=== PATIENT | male | born 1975 | race American Indian/Alaskan Native ===

== ENCOUNTER 2018-04-16 08:51 | Inpatient (IN) | payer BC, OTHER ==
[2018-04-16 09:07] VITALS: BMI 47.5
[2018-04-16] MEDS ORDERED: Sodium Chloride 0.9% 1,000 ML IV STA (09:40)
--- NOTE | 2018-04-16 09:50 | ED PDOC ---
Arrival/HPI <Leonardo Galarza - Last Filed: 04/16/18 14:58> - General Historian: Patient - History of Present Illness Narrative History of Present Illness (Text): Patient is a 43 yr old male with PMH DM, HTN who presents with 2 days of pain at the inferior border of his scrotum near/extending into his perineum. he states the pain began while sitting as he is a haul truck driver and has been getting gradually worse. Patient states the area began to swell extending into his scrotum and it "felt like there was a ball there". Patient went to an urgent care yesterday and states that they indicated there was nothing to do. Patient states that upon returning home last night the area "burst" and began to drain foul smelling pus. Patient does endorse mild fevers and chills but otherwise deneis CESAR, CP, SOB, abdominal pain, n/v, dysuria, stool changes, diarrhea, const ipation and extremity pain/weakness. 04/16/18 09:45 Time/Duration: Prior to Arrival, 24 hours Symptom Onset: Gradual Symptom Course: Worsening Quality: Throbbing Severity Level: 6 Activities at Onset: Rest Context: Sitting <Honey Keen - Last Filed: 04/20/18 19:28> - General Chief Complaint: Male Genitourinary Time Seen by Provider: 04/16/18 09:30 Past Medical History - Provider Review Nursing Documentation Reviewed: Yes - Infectious Disease Hx of Infectious Diseases: None - Cardiac Hx Hypertension: Yes - Endocrine/Metabolic Hx Diabetes Mellitus Type 2: Yes - Psychiatric Hx Depression: No Hx Emotional Abuse: No Hx Physical Abuse: No Hx Substance Use: No - Surgical History Hx Orthopedic Surgery: Yes Other/Comment: R finger sx - Suicidal Assessment Feels Threatened In Home Enviroment: No <Honey Keen - Last Filed: 04/20/18 19:28> Family/Social History Family/Social History: Unknown Family HX Smoking Status: Light Smoker < 10 Cigarettes Daily Hx Alcohol Use: Yes Frequency of alcohol use: Socially Hx Substance Use: No Hx Substance Use Treatment: No <Honey Keen - Last Filed: 04/20/18 19:28> Allergies/Home Meds <Leonardo Galarza - Last Filed: 04/16/18 14:58> <Honey Keen - Last Filed: 04/20/18 19:28> Allergies/Adverse Reactions: Allergies No Known Allergies Allergy (Verified 04/12/12 11:40) Home Medications: Home Meds Medication Instructions Recorded Confirmed Atenolol [Tenormin] 50 mg PO DAILY 04/16/18 04/16/18 GlipiZIDE [Glipizide] 10 mg PO DAILY 04/16/18 04/16/18 Losartan/Hydrochlorothiazide 1 each PO DAILY 04/16/18 04/16/18 [Losartan-Hctz 100-25 mg Tab] MetFORMIN [glucOPHAGE] 1,000 mg PO BID 04/16/18 04/16/18 amLODIPine [Norvasc] 10 mg PO DAILY 04/16/18 04/16/18 Review of Systems - Physician Review All systems were reviewed & negative as marked: Yes - Review of Systems Constitutional: Fevers. absent: Fatigue Respiratory: absent: SOB, Cough Cardiovascular: absent: Chest Pain Gastrointestinal: absent: Abdominal Pain, Constipation, Diarrhea, Nausea, Vomiting Genitourinary Male: Other (scrotal pain). absent: Dysuria, Hematuria Neurological: absent: Headache Endocrine: absent: Diaphoresis <KeenHoney ray - Last Filed: 04/20/18 19:28> Physical Exam Vital Signs Temp Pulse Resp BP Pulse Ox 04/16/18 09:15 99.1 F 93 H 18 130/83 96 <Leonardo Galarza - Last Filed: 04/16/18 14:58> Vital Signs Reviewed: Yes Vital Signs Temp Pulse Resp BP Pulse Ox 04/16/18 09:15 99.1 F 93 H 18 130/83 96 Temperature: Afebrile Blood Pressure: Normal Pulse: Tachycardic Respiratory Rate: Normal Appearance: Positive for: Well-Appearing, Non-Toxic, Comfortable Pain Distress: None Mental Status: Positive for: Alert and Oriented X 3 - Systems Exam Head: Present: Atraumatic, Normocephalic Pupils: Present: PERRL Extroacular Muscles: Present: EOMI Mouth: Present: Moist Mucous Membranes Respiratory/Chest: No: Respiratory Distress, Accessory Muscle Use Cardiovascular: Present: Normal S1, S2, Tachycardic. No: Murmurs Abdomen: No: Tenderness, Distention, Peritoneal Signs, Rebound, Guarding Genitourinary Male: Present: Testicle Tenderness, Erythema, Testicle Swelling, Other (Large area of induration and tenderness involving the p[erineal area and testicles, area is draining foul smelling fluid and air is expressed with fluid, crepitus is present). No: Circumcised Penis, Penile Discharge, Penile Swelling Upper Extremity: Present: Normal Inspection, NORMAL PULSES. No: Cyanosis, Edema Lower Extremity: Present: Normal Inspection, NORMAL PULSES. No: Edema, CALF TENDERNESS Neurological: Present: GCS=15, CN II-XII Intact, Speech Normal Skin: Present: Warm, Erythematous, Induration, Abscess, Other (Large area of induration and tenderness involving the p[erineal area and testicles, area is draining foul smelling fluid and air is expressed with fluid, crepitus is pres ent) Psychiatric: Present: Alert, Oriented x 3, Normal Insight, Normal Concentration <Honey Keen - Last Filed: 04/20/18 19:28> Medical Decision Making ED Course and Treatment: 04/16/18 11:12 43 year old male presenting to the emergency department complaining of scrotal pain. In agreement with resident note, which includes further HPI details. Patient was seen and evaluated with resident, came up with plan and treatment together. 04/16/18 13:[address] huff to the hospitalist service, patient to be admitted for surgical management of scrotal abscess with concerns for fourniers gangrene. - Lab Interpretations Lab Results: Total Bilirubin 0.8 mg/dL (0.2-1.3) 04/16/18 10:00 AST 23 U/L (17-59) 04/16/18 10:00 ALT 37 U/L (7-56) 04/16/18 10:00 Alkaline Phosphatase 144 U/L (38-126) H 04/16/18 10:00 Total Protein 6.9 g/dL (5.8-8.3) 04/16/18 10:00 Albumin 3.5 g/dL (3.0-4.8) 04/16/18 10:00 Globulin 3.4 gm/dL 04/16/18 10:00 Albumin/Globulin Ratio 1.0 (1.1-1.8) L 04/16/18 10:00 - RAD Interpretation Radiology Orders: 04/16/18 09:38 ABD & PELVIS IV CONTRAST ONLY [CT] Stat - Medication Orders Current Medication Orders: Vancomycin HCl (Vancomycin 1gm) 1 gm in 250 mls @ 167 mls/hr IVPB STAT STA; Protocol Stop: 04/16/18 11:41 Discontinued Medications Acetaminophen (Tylenol 325mg Tab) 650 mg PO STAT STA Stop: 04/16/18 09:41 Last Admin: 04/16/18 10:04 Dose: Not Given Non-Admin Reason: Patient Refused Sodium Chloride (Sodium Chloride 0.9%) 1,000 mls @ 999 mls/hr IV .Q1H1M STA Stop: 04/16/18 10:40 Last Admin: 04/16/18 10:00 Dose: 999 mls/hr eMAR Start Stop Document 04/16/18 10:00 OCS (Rec: 04/16/18 10:01 OCS [facility]) Intravenous Solution Start Date 04/16/18 Start Time 10:00 End Date 04/16/18 End time 11:01 Total Infusion Time 61 Piperacillin Sod/Tazobactam Sod (Zosyn 3.375 In Ns 100ml) 100 mls @ 200 mls/hr IVPB STAT STA; Protocol Stop: 04/16/18 10:41 Insulin Human Regular (Humulin R) 10 units IVP STAT STA Stop: 04/16/18 10:58 <Leonardo Galarza - Last Filed: 04/16/18 14:58> ED Course and Treatment: Impression: 43 yr old male with DM presenting for scrotal pain/drainage Plan : CBC CMP Urology consult, concern for possible Chilo's gangrene Dr. Rodney called and left message [id number] Abd/ Pelvis CT w/ IV contrast IVF 04/16/18 09:[address] Rodney Urologist, agrees with plan will make pt NPO in case of OR, consult General Surgery, Dr. Strickland, per Dr. Rodneys request ordered NPO, vbg lactate, blood cultures and wound cultures 04/16/18 10:[address] Rowe radiology regarding read for CT scan, awaiting call back 04/16/18 12:54 spoke with General surgery team about CT results, agreed to evaluate patient 04/16/18 12:[address] Rowe Radiologist, agrees with presence of gas trapping in scrotum suspicious for necrotizing gas forming bacterial infection 04/16/18 13:08 04/16/18 13:[address] huff, hospitalist, patient to recieve surgical management for scrotal abscess with concern for chilo's gangrene - Lab Interpretations Lab Results: 04/16/18 10:00 04/16/18 10:00 Lab Results 04/16/18 11:30: pO2 113 H, VBG pH 7.43, VBG pCO2 37.0 L, VBG HCO3 24.6, VBG Total CO2 25.7, VBG O2 Sat (Calc) 97.3 H, VBG Base Excess 0.5, VBG Potassium 3.7, Glucose 380 H, Lactate 1.3, FiO2 21.0, Sodium 132.0, Chloride 100.0, Venous Blood Potassium 3.7 04/16/18 10:05: PT 14.6 H, INR 1.26, APTT 32.2 04/16/18 10:00: Sodium 136, Potassium 4.0, Chloride 101, Carbon Dioxide 27, Anion Gap 12, BUN 21, Creatinine 1.3, Est GFR ( Amer) > 60, Est GFR (Non- Af Amer) 60, Random Glucose 379 H*, Calcium 8.9, Total Bilirubin 0.8, AST 23, ALT 37, Alkaline Phosphatase 144 H, Total Protein 6.9, Albumin 3.5, Globulin 3.4, Albumin/Globulin Ratio 1.0 L 04/16/18 10:00: WBC 10.4, RBC 4.75, Hgb 13.2 L, Hct 39.9 L, MCV 84.0, MCH 27.8, MCHC 33.1, RDW 13.3, Plt Count 251, MPV 10.1 Interpretation: Abnormal lab values - RAD Interpretation Radiology Orders: 04/16/18 09:38 ABD & PELVIS IV CONTRAST ONLY [CT] Stat - Medication Orders Current Medication Orders: Sodium Chloride (Sodium Chloride 0.9%) 1,000 mls @ 999 mls/hr IV .Q1H1M STA Stop: 04/16/18 10:40 Discontinued Medications Acetaminophen (Tylenol 325mg Tab) 650 mg PO STAT STA Stop: 04/16/18 09:41 <Honey Keen - Last Filed: 04/20/18 19:28> - PA / SKID STRAPPER / Resident Statement MD/DO has reviewed & agrees with the documentation as recorded. MD/DO has examined the patient and agrees with the treatment plan. - Scribe Statement The provider has reviewed the documentation as recorded by the Milagroibalcon Mahoney All medical record entries made by the Scribe were at my direction and personally dictated by me. I have reviewed the chart and agree that the record accurately reflects my personal performance of the history, physical exam, medical decision making, and the department course for this patient. I have also personally directed, reviewed, and agree with the discharge instructions and disposition. <Leonardo Galarza - Last Filed: 04/16/18 14:58> Disposition/Present on Arrival <Leonardo Galarza - Last Filed: 04/16/18 14:58> - Present on Arrival Any Indicators Present on Arrival: Yes History of DVT/PE: No History of Uncontrolled Diabetes: Yes Urinary Catheter: No History of Decub. Ulcer: No History Surgical Site Infection Following: None - Disposition Have Diagnosis and Disposition been Completed?: Yes Disposition Time: 13:34 Patient Plan: Admission <Honey Keen - Last Filed: 04/20/18 19:28> - Disposition Diagnosis: Scrotal abscess, Gas gangrene Disposition: HOSPITALIZED Patient Problems: Current Active Problems Problem Status Onset Gas gangrene Acute Scrotal abscess Acute Condition: STABLE
[2018-04-16] MEDS ORDERED: Piperacillin/Tazobact 3.375 gm 100 ML IVPB STA (10:12)
[2018-04-16] MEDS ORDERED: Vancomycin 1gm in NS 250ml 1 GM/250 ML BAG IVPB STA (10:12)
[2018-04-16 10:24] LABS: HEMOGLOBIN 13.2 g/dL (14.0-18.0); MEAN CORPUSCULAR HEMOGLOBIN 27.8 pg (25.0-35.0); MEAN CORPUSCULAR HGB CONC 33.1 g/dl (31.0-37.0); MEAN PLATELET VOLUME 10.1 fl (7.0-11.0); RBC 4.75 10^6/uL (3.5-6.1); RED CELL DISTRIBUTION WIDTH 13.3 % (11.5-14.5); WHITE BLOOD COUNT 10.4 10^3/uL (4.5-11.0)
[2018-04-16 10:45] LABS: ALBUMIN 3.5 g/dL (3.0-4.8); ALT/SGPT 37 U/L (7-56); AST/SGOT 23 U/L (17-59); BLOOD UREA NITROGEN 21 mg/dL (7-21); CALCIUM 8.9 mg/dL (8.4-10.5); GFR NON-AFRICAN AMERICAN 60
[2018-04-16] MEDS ORDERED: Insulin Regular 1 UNITS/0.01 ML ML IVP STA (10:57)
[2018-04-16 11:43] LABS: VENOUS BLOOD GAS BASE EXCESS 0.5 mmol/L (0.0-2.0); VENOUS BLOOD GAS PO2 113 mm/Hg (30-55); VENOUS BLOOD PH 7.43 (7.32-7.43)
[2018-04-16 11:47] LABS: INR 1.26; PARTIAL THROMBOPLASTIN TIME 32.2 Seconds (25.1-36.5); PROTHROMBIN TIME 14.6 SECONDS (9.4-12.5)
--- NOTE | 2018-04-16 13:03 | CP.PCM.CON ---
<Porsha Toribio - Last Filed: 04/16/18 14:15> History of Present Illness - History of Present Illness History of Present Illness: PGY-1 Porsha Toribio D.O. Surgery consult note for Dr. Strickland: Patient is a 43 yo AA male with a history of T2DM and HTN who presented to the ED with a R-sided scrotal lesion. Patient states he first noticed some pressure on his right scrotal area on Sunday, and he soon after noticed a "knot-like" ball beneath his scrotal skin. This continued to swell and increase in size. On Sunday, the lesion began to drain a white/red pus. Patient denies foul-odor. Patient reports only "pressure" when he sits, not really pain. He denies ever having an abscess before. He denies urinary symptoms, including dysuria or urinary frequency. He denies penile discharge or lesions. He denies fevers, chills, abdominal pain. CT shows diffuse soft tissue swelling and fluid in scrotal wall, inflammatory changes at perineum and R medial gluteal SQ tissue most compatible with cellulitis, Wendy gangrene is consideration. Patient last ate around 9AM this morning. He took his medications this morning PMH: T2DM, HTN PSH: finger tendon repair Meds: metformin 1000mg BID, glipizide 10mg, amlodipine 10mg, atenolol 50mg, losartan/HCTZ 100/25mg All: NKA FH: DM SH: lives with and 4 kids, works as garbage truck helper Tob- smokes 5 cigarettes/day x 25 years Alc- 7-8 drinks/weekend Denies illicit drug use Medical proxy: Kevin [phone] Review of Systems - Constitutional Constitutional: absent: Chills, Fever, Weakness - EENT Eyes: absent: Change in Vision Ears: absent: Decreased Hearing Nose/Mouth/Throat: absent: Nasal Congestion - Cardiovascular Cardiovascular: absent: Chest Pain, Diaphoresis, Dyspnea, Palpitations, Pedal Edema - Respiratory Respiratory: absent: Cough, Dyspnea - Gastrointestinal Gastrointestinal: absent: Abdominal Pain, Constipation, Diarrhea, Nausea, Vomiting - Genitourinary Genitourinary: absent: Change in Urinary Stream, Difficulty Urinating, Dysuria, Hematuria, Pyuria - Reproductive: Male Reproductive:Male: As Per HPI - Musculoskeletal Musculoskeletal: absent: Numbness, Tingling - Integumentary Integumentary: As Per HPI, New Lesions, Swelling (scrotal). absent: Pruritus, Rash - Neurological Neurological: Headaches (occasional). absent: Numbness, Focal Weakness, Sensory Deficit Past Patient History - Infectious Disease Hx of Infectious Diseases: None - Tetanus Immunizations Tetanus Immunization: Unknown - Past Medical History & Family History Past Medical History?: Yes Pertinent Family History: diabetes - Past Social History Smoking Status: Light Smoker < 10 Cigarettes Daily Chewing Tobacco Use: No Cigar Use: No Alcohol: Social Drugs: Denies Home Situation {Lives}: With Family - CARDIAC Hx Hypertension: Yes - ENDOCRINE/METABOLIC Hx Diabetes Mellitus Type 2: Yes - PSYCHIATRIC Hx Depression: No Hx Emotional Abuse: No Hx Physical Abuse: No Hx Substance Use: No - SURGICAL HISTORY Hx Orthopedic Surgery: Yes Other/Comment: R finger sx Meds Allergies/Adverse Reactions: Allergies Allergy/AdvReac Type Severity Reaction Status Date / Time No Known Allergies Allergy Verified 04/12/12 11:40 Physical Exam - Constitutional Appears: Non-toxic, No Acute Distress Additional comments: obese - Head Exam Head Exam: ATRAUMATIC, NORMAL INSPECTION - Eye Exam Eye Exam: EOMI, Normal appearance - ENT Exam ENT Exam: Mucous Membranes Moist - Neck Exam Neck exam: Positive for: Normal Inspection - Respiratory Exam Respiratory Exam: Clear to Auscultation Bilateral, NORMAL BREATHING PATTERN. absent: Accessory Muscle Use, Chest Wall Tenderness, Rales, Rhonchi, Wheezes, Respiratory Distress - Cardiovascular Exam Cardiovascular Exam: REGULAR RHYTHM, RRR, +S1, +S2. absent: Diastolic murmur, Systolic Murmur - GI/Abdominal Exam GI & Abdominal Exam: Normal Bowel Sounds, Soft. absent: Distended, Tenderness - Exam Exam: Scrotal Swelling. absent: Uretheral Discharge External exam: Lesions (2x2cm errythematous lesion with induration and white/yellow discharge) - Extremities Exam Extremities exam: Positive for: normal inspection, pedal pulses present. Negative for: pedal edema - Back Exam Back exam: NORMAL INSPECTION - Neurological Exam Neurological exam: Alert, CN II-XII Intact, Oriented x3 - Psychiatric Exam Psychiatric exam: Normal Affect, Normal Mood - Skin Skin Exam: Dry, Normal Color, Warm Results - Vital Signs Recent Vital Signs: Last Vital Signs Temp 99.1 F 04/16/18 11:40 Pulse 91 H 04/16/18 11:40 Resp 18 04/16/18 11:40 BP 145/63 04/16/18 11:40 Pulse Ox 95 04/16/18 11:40 - Labs Result Diagrams: 04/16/18 10:00 04/16/18 10:00 Labs: Laboratory Results - last 24 hr 04/16/18 04/16/18 04/16/18 10:00 10:00 10:05 WBC 10.4 RBC 4.75 Hgb 13.2 L Hct 39.9 L MCV 84.0 MCH 27.8 MCHC 33.1 RDW 13.3 Plt Count 251 MPV 10.1 PT 14.6 H INR 1.26 APTT 32.2 pO2 VBG pH VBG pCO2 VBG HCO3 VBG Total CO2 VBG O2 Sat (Calc) VBG Base Excess VBG Potassium Glucose Lactate FiO2 Sodium 136 Potassium 4.0 Chloride 101 Carbon Dioxide 27 Anion Gap 12 BUN 21 Creatinine 1.3 Est GFR ( Amer) > 60 Est GFR (Non-Af Amer) 60 POC Glucose (mg/dL) Random Glucose 379 H* Calcium 8.9 Total Bilirubin 0.8 AST 23 ALT 37 Alkaline Phosphatase 144 H Total Protein 6.9 Albumin 3.5 Globulin 3.4 Albumin/Globulin Ratio 1.0 L Venous Blood Potassium Blood Type Antibody Screen BBK History Checked 04/16/18 04/16/18 04/16/18 11:30 11:59 12:16 WBC RBC Hgb Hct MCV MCH MCHC RDW Plt Count MPV PT INR APTT pO2 113 H VBG pH 7.43 VBG pCO2 37.0 L VBG HCO3 24.6 VBG Total CO2 25.7 VBG O2 Sat (Calc) 97.3 H VBG Base Excess 0.5 VBG Potassium 3.7 Glucose 380 H Lactate 1.3 FiO2 21.0 Sodium 132.0 Potassium Chloride 100.0 Carbon Dioxide Anion Gap BUN Creatinine Est GFR ( Amer) Est GFR (Non-Af Amer) POC Glucose (mg/dL) 242 H Random Glucose Calcium Total Bilirubin AST ALT Alkaline Phosphatase Total Protein Albumin Globulin Albumin/Globulin Ratio Venous Blood Potassium 3.7 Blood Type AB POSITIVE Antibody Screen Negative BBK History Checked No verified bt Assessment & Plan - Assessment and Plan (Free Text) Assessment: 43M with R-sided scrotal abscess/cellulitis CT Abdomen and Pelvis with IV contrast IMPRESSION: Diffuse soft tissue swelling and fluid in the scrotal wall, inflammatory changes and air at the base of the posterior scrotal wall (perineum) and in the right medial gluteal subcutaneous tissue most compatible with cellulitis. The source of air could be from infection or open bone for which clinical correlation is advised. Wendy gangrene is a consideration. Plan: - Urology consult - ID consult - Broad spectrum antibiotics - f/u Wound and Blood Cx - NPO for possible OR today 04/16 Further recs as per attending, Dr. Strickland. <Hugh Strickland - Last Filed: 04/17/18 20:19> Meds - Medications Medications: Current Medications Amlodipine Besylate (Norvasc) 10 mg PO DAILY [facility] Last Admin: 04/17/18 11:47 Dose: 10 mg Atenolol (Tenormin) 50 mg PO DAILY [facility] Last Admin: 04/17/18 11:47 Dose: 50 mg Benzocaine/Menthol (Cepacol Sore Throat) 1 gen MT Q2H PRN PRN Reason: Sore Throat Hydrochlorothiazide (Hydrodiuril) 25 mg PO DAILY [facility] Last Admin: 04/17/18 11:48 Dose: 25 mg Hydromorphone HCl (Dilaudid) 1 mg IVP ONCE ONE Stop: 04/18/18 06:16 Sodium Chloride (Sodium Chloride 0.9%) 1,000 mls @ 150 mls/hr IV .Q6H40M [facility] Last Admin: 04/17/18 18:01 Dose: 150 mls/hr Linezolid (Zyvox 600mg/300ml D5w) 600 mg in 300 mls @ 200 mls/hr IVPB Q12 [facility]; Protocol Stop: 04/25/18 15:34 Last Admin: 04/17/18 11:49 Dose: 200 mls/hr Piperacillin Sod/Tazobactam Sod (Zosyn 3.375 In Ns 100ml) 100 mls @ 25 mls/hr IVPB Q8 [facility]; Protocol Stop: 04/24/18 22:01 Last Admin: 04/17/18 14:20 Dose: 25 mls/hr Clindamycin Phosphate 900 mg/ (Sodium Chloride) 106 mls @ 106 mls/hr IVPB Q8 [facility]; Protocol Stop: 04/25/18 15:46 Last Admin: 04/17/18 14:19 Dose: 106 mls/hr Insulin Human Regular (Humulin R High) 0 units SC ACHS [facility]; Protocol Last Admin: 04/17/18 16:45 Dose: 15 unit Ketorolac Tromethamine (Toradol) 30 mg IVP Q6 PRN PRN Reason: Pain, Mild (1-3) Losartan Potassium (Cozaar) 100 mg PO DAILY [facility] Last Admin: 04/17/18 11:48 Dose: 100 mg Oxycodone/Acetaminophen (Percocet 5/325 Mg Tab) 1 tab PO Q4H PRN PRN Reason: Pain, moderate (4-7) Stop: 04/20/18 10:31 Pantoprazole Sodium (Protonix Inj) 40 mg IVP DAILY [facility] Last Admin: 04/17/18 11:50 Dose: 40 mg Vitamin A (Vitamin A & D Oint Ud Foilpak) 1 ea TOP Q2H PRN PRN Reason: Apply to affected areas as nee Results - Vital Signs Recent Vital Signs: Last Vital Signs Temp 99.4 F 04/17/18 17:18 Pulse 89 04/17/18 17:18 Resp 20 04/17/18 17:18 BP 128/87 04/17/18 17:18 Pulse Ox 96 04/17/18 17:18 - Labs Result Diagrams: 04/16/18 10:00 04/16/18 10:00 Labs: Laboratory Results - last 24 hr 04/16/18 04/17/18 04/17/18 15:00 06:15 07:41 POC Glucose (mg/dL) 242 H Urine Color Yellow Urine Appearance Clear Urine pH 6.0 Ur Specific [place] 1.025 Urine Protein 30 H Urine Glucose (UA) >=1000 Urine Ketones Negative Urine Blood Negative Urine Nitrate Negative Urine Bilirubin Negative Urine Urobilinogen 0.2 Ur Leukocyte Esterase Negative Urine RBC 0 - 2 Urine WBC 0 - 2 Ur Epithelial Cells 1 - 3 Amorphous Sediment Rare Urine Bacteria None HIV 1&2 Ag/Ab, 4th Gen Nonreactive 04/17/18 04/17/18 11:26 16:07 POC Glucose (mg/dL) 265 H 478 H* Urine Color Urine Appearance Urine pH Ur Specific [place] Urine Protein Urine Glucose (UA) Urine Ketones Urine Blood Urine Nitrate Urine Bilirubin Urine Urobilinogen Ur Leukocyte Esterase Urine RBC Urine WBC Ur Epithelial Cells Amorphous Sediment Urine Bacteria HIV 1&2 Ag/Ab, 4th Gen Assessment & Plan - Assessment and Plan (Free Text) Plan: Patient was seen, evaluated and examined by me at the bedside. I agree with assessment and plan as stated in the resident's note.
--- NOTE | 2018-04-16 13:15 | CT ---
Date of service: 04/16/2018 PROCEDURE: CT Abdomen and Pelvis with contrast HISTORY: focus pelvic/ testicular area, pain and drainage COMPARISON: None available. TECHNIQUE: CT scan of the abdomen and pelvis was performed after administration of intravenous contrast. Oral contrast was not administered. Coronal and sagittal reformatted images were obtained. Contrast dose: Radiation dose: Total exam DLP = 2217.94 mGy-cm. This CT exam was performed using one or more of the following dose reduction techniques: Automated exposure control, adjustment of the mA and/or kV according to patient size, and/or use of iterative reconstruction technique. FINDINGS: LOWER THORAX: The visualized lungs are clear. LIVER: Normal in size with homogeneous enhancement. No gross lesion or ductal dilatation. GALLBLADDER AND BILE DUCTS: Well distended. No calcified gallstones, wall thickening or pericholecystic fluid. PANCREAS: Normal in size with homogeneous enhancement. No gross lesion or ductal dilatation. SPLEEN: Normal in size and appearance. ADRENALS: No discrete nodule. KIDNEYS AND URETERS: Normal in size with homogeneous enhancement. No hydronephrosis. No solid mass. There are few simple cysts in the kidneys, the largest in the left upper pole measures 5.6 x 4.6 cm. There is a punctate nonobstructing stone in the lower pole of the left kidney VASCULATURE: No aortic aneurysm. There are mild aortic atherosclerotic calcifications present. BOWEL: Evaluation of the bowel is limited in the absence of oral contrast. The small bowel loops are normal in caliber. The colon is grossly normal in appearance. No bowel wall thickening or obstruction. APPENDIX: Normal appendix. PERITONEUM: No free fluid. No free air. LYMPH NODES: No enlarged lymph nodes. BLADDER: Well distended and normal in appearance. REPRODUCTIVE: The prostate gland is normal in size. BONES: No acute fracture. Within normal limits for the patient's age. OTHER FINDINGS: There is diffuse thickening, soft tissue swelling fluid in the scrotal wall. Abnormal soft tissue, inflammatory fat stranding and air in the posterior soft tissues at the base of the scrotum (perineum) and few foci of air in the right medial gluteal subcutaneous tissues. IMPRESSION: Diffuse soft tissue swelling and fluid in the scrotal wall, inflammatory changes and air at the base of the posterior scrotal wall (perineum) and in the right medial gluteal subcutaneous tissue most compatible with cellulitis. The source of air could be from infection or open bone for which clinical correlation is advised. Wendy gangrene is a consideration. Important findings were discussed with Dr. Galarza in the emergency room on 04/16/2018 at 1:11 p.m.
[2018-04-16] MEDS ORDERED: Vancomycin 1gm in NS 250ml 1 GM/250 ML BAG IVPB SCH ×2 (13:45→14:27)
--- NOTE | 2018-04-16 13:56 | CP.PCM.HP ---
<Evaristo Wagner - Last Filed: 04/16/18 18:27> History of Present Illness - History of Present Illness History of Present Illness: Resident History & Physical for Hospitalist Service Patient is a 43 year old male with past medical history of T2DM and HTN presenting with chief complaint of right sided scrotal lesion and swelling. He states this has never happened to him before. Patient states he first noticed pressure on his right scrotal area 4 days prior, and this has worsened in severity. He also admits to drainage of white and red pus. 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 Denies pain, odor of drainage, fevers, chills, chest pain, shortness of breath, abdominal pain, dysuria, diarrhea. PMH: T2DM, HTN PSH: finger tendon repair SHx: 5 cigarettes per day for 25 years, 7-8 units of alcohol per weekend, denies illicit drug use, otr van cdl truck driver FHx: T2DM Allergies: NKDA PMD: Dr. Emerita Bean Present on Admission - Present on Admission Any Indicators Present on Admission: No Review of Systems - Review of Systems All systems: reviewed and no additional remarkable complaints except (as stated in HPI) Past Patient History - Infectious Disease Hx of Infectious Diseases: None - Tetanus Immunizations Tetanus Immunization: Unknown - Past Medical History & Family History Past Medical History?: Yes - Past Social History Smoking Status: Light Smoker < 10 Cigarettes Daily Chewing Tobacco Use: No Cigar Use: No Alcohol: Social Drugs: Denies Home Situation {Lives}: With Family - CARDIAC Hx Hypertension: Yes - ENDOCRINE/METABOLIC Hx Diabetes Mellitus Type 2: Yes - PSYCHIATRIC Hx Depression: No Hx Emotional Abuse: No Hx Physical Abuse: No Hx Substance Use: No - SURGICAL HISTORY Hx Orthopedic Surgery: Yes Other/Comment: R finger sx Meds Allergies/Adverse Reactions: Allergies Allergy/AdvReac Type Severity Reaction Status Date / Time No Known Allergies Allergy Verified 04/12/12 11:40 Physical Exam - Constitutional Appears: Non-toxic, No Acute Distress - Head Exam Head Exam: ATRAUMATIC, NORMOCEPHALIC - Eye Exam Eye Exam: EOMI, Normal appearance, PERRL - ENT Exam ENT Exam: Mucous Membranes Moist, Normal External Ear Exam - Neck Exam Neck exam: Positive for: Normal Inspection. Negative for: Lymphadenopathy - Respiratory Exam Respiratory Exam: Clear to Auscultation Bilateral, NORMAL BREATHING PATTERN. absent: Rales, Rhonchi, Wheezes, Respiratory Distress - Cardiovascular Exam Cardiovascular Exam: REGULAR RHYTHM, +S1, +S2. absent: Tachycardia, JVD, Systolic Murmur - GI/Abdominal Exam GI & Abdominal Exam: Normal Bowel Sounds, Soft. absent: Distended, Firm, Guarding, Rebound, Rigid, Tenderness - Exam Exam: Scrotal Swelling. absent: Testicular Tenderness, Uretheral Discharge, Bladder Distension External exam: Lesions, Swelling - Extremities Exam Extremities exam: Positive for: normal capillary refill, normal inspection, pedal pulses present. Negative for: pedal edema - Neurological Exam Neurological exam: Alert, CN II-XII Intact, Oriented x3 - Psychiatric Exam Psychiatric exam: Normal Affect, Normal Mood - Skin Skin Exam: Dry, Intact, Normal Color, Warm Results - Vital Signs Recent Vital Signs: Last Vital Signs Temp 99.1 F 04/16/18 11:40 Pulse 91 H 04/16/18 11:40 Resp 18 04/16/18 11:40 BP 145/63 04/16/18 11:40 Pulse Ox 95 04/16/18 11:40 - Labs Result Diagrams: 04/16/18 10:00 04/16/18 10:00 Labs: Laboratory Results - last 24 hr 04/16/18 04/16/18 04/16/18 10:00 10:00 10:05 WBC 10.4 RBC 4.75 Hgb 13.2 L Hct 39.9 L MCV 84.0 MCH 27.8 MCHC 33.1 RDW 13.3 Plt Count 251 MPV 10.1 PT 14.6 H INR 1.26 APTT 32.2 pO2 VBG pH VBG pCO2 VBG HCO3 VBG Total CO2 VBG O2 Sat (Calc) VBG Base Excess VBG Potassium Glucose Lactate FiO2 Sodium 136 Potassium 4.0 Chloride 101 Carbon Dioxide 27 Anion Gap 12 BUN 21 Creatinine 1.3 Est GFR ( Amer) > 60 Est GFR (Non-Af Amer) 60 POC Glucose (mg/dL) Random Glucose 379 H* Calcium 8.9 Total Bilirubin 0.8 AST 23 ALT 37 Alkaline Phosphatase 144 H Total Protein 6.9 Albumin 3.5 Globulin 3.4 Albumin/Globulin Ratio 1.0 L Venous Blood Potassium Blood Type Blood Type Confirm Antibody Screen BBK History Checked 04/16/18 04/16/18 04/16/18 11:30 11:59 12:16 WBC RBC Hgb Hct MCV MCH MCHC RDW Plt Count MPV PT INR APTT pO2 113 H VBG pH 7.43 VBG pCO2 37.0 L VBG HCO3 24.6 VBG Total CO2 25.7 VBG O2 Sat (Calc) 97.3 H VBG Base Excess 0.5 VBG Potassium 3.7 Glucose 380 H Lactate 1.3 FiO2 21.0 Sodium 132.0 Potassium Chloride 100.0 Carbon Dioxide Anion Gap BUN Creatinine Est GFR ( Amer) Est GFR (Non-Af Amer) POC Glucose (mg/dL) 242 H Random Glucose Calcium Total Bilirubin AST ALT Alkaline Phosphatase Total Protein Albumin Globulin Albumin/Globulin Ratio Venous Blood Potassium 3.7 Blood Type AB POSITIVE Blood Type Confirm Antibody Screen Negative BBK History Checked No verified bt 04/16/18 12:26 WBC RBC Hgb Hct MCV MCH MCHC RDW Plt Count MPV PT INR APTT pO2 VBG pH VBG pCO2 VBG HCO3 VBG Total CO2 VBG O2 Sat (Calc) VBG Base Excess VBG Potassium Glucose Lactate FiO2 Sodium Potassium Chloride Carbon Dioxide Anion Gap BUN Creatinine Est GFR ( Amer) Est GFR (Non-Af Amer) POC Glucose (mg/dL) Random Glucose Calcium Total Bilirubin AST ALT Alkaline Phosphatase Total Protein Albumin Globulin Albumin/Globulin Ratio Venous Blood Potassium Blood Type Blood Type Confirm AB POSITIVE Antibody Screen BBK History Checked Assessment & Plan - Assessment and Plan (Free Text) Assessment: Patient is a 43 year old male with past medical history of T2DM and HTN presenting with chief complaint of right sided scrotal lesion and swelling. Plan: Scrotal lesion - afebrile, no leukocytosis - CT shows diffuse soft tissue swelling and fluid in scrotal wall, inflammatory changes at perineum and R medial gluteal SQ tissue most compatible with cellulitis, Wendy gangrene is consideration. - Surgery, ID, and urology consulted. Appreciate recs. - plan for surgical intervention tomorrow morning - NPO - Vancomycin and Zosyn given in ED - NS @ 150 ccs/hr - Linezolid 600 mg IV Q12, Clindamycin 900 mg IV Q8, Zosyn 3.375 gm IV Q8 HTN - continue home meds - Losartan 100 mg PO daily - HCTZ 25 mg PO daily - Norvasc 10 mg PO daily - Atenolol 50 mg PO daily T2DM - home meds held - ISS, accuchecks PPX - SCDs - Protonix 40 mg IVP daily Case discussed with Dr. Sudeep Wagner PGY-1 - Date & Time Date: 04/16/18 Time: 13:55 <Ginna Sheets - Last Filed: 04/21/18 14:14> Results - Vital Signs Recent Vital Signs: Last Vital Signs Temp 98.1 F 04/21/18 07:00 Pulse 79 04/21/18 09:16 Resp 20 04/21/18 07:00 BP 138/80 04/21/18 09:16 Pulse Ox 99 04/21/18 07:00 - Labs Result Diagrams: 04/21/18 07:00 04/21/18 07:00 Labs: Laboratory Results - last 24 hr 04/20/18 04/20/18 04/21/18 16:08 21:18 06:21 WBC RBC Hgb Hct MCV MCH MCHC RDW Plt Count MPV Gran % Lymph % (Auto) Wilkin % (Auto) Eos % (Auto) Baso % (Auto) Gran # Lymph # (Auto) Wilkin # (Auto) Eos # (Auto) Baso # (Auto) Sodium Potassium Chloride Carbon Dioxide Anion Gap BUN Creatinine Est GFR ( Amer) Est GFR (Non-Af Amer) POC Glucose (mg/dL) 198 H 193 H 287 H Random Glucose Calcium Total Bilirubin AST ALT Alkaline Phosphatase Total Protein Albumin Globulin Albumin/Globulin Ratio 04/21/18 04/21/18 07:00 07:00 WBC 6.1 RBC 4.76 Hgb 12.8 L Hct 40.2 L MCV 84.5 MCH 26.9 MCHC 31.8 RDW 13.3 Plt Count 309 MPV 9.5 Gran % 66.5 Lymph % (Auto) 22.2 Wilkin % (Auto) 8.5 H Eos % (Auto) 2.6 Baso % (Auto) 0.2 Gran # 4.07 Lymph # (Auto) 1.4 Wilkin # (Auto) 0.5 Eos # (Auto) 0.2 Baso # (Auto) 0.01 Sodium 139 Potassium 4.0 Chloride 106 Carbon Dioxide 26 Anion Gap 11 BUN 18 Creatinine 1.3 Est GFR ( Amer) > 60 Est GFR (Non-Af Amer) 60 POC Glucose (mg/dL) Random Glucose 272 H Calcium 9.2 Total Bilirubin 0.3 AST 24 ALT 33 Alkaline Phosphatase 127 H Total Protein 7.2 Albumin 3.5 Globulin 3.7 Albumin/Globulin Ratio 1.0 L Attending/Attestation - Attestation I have personally seen and examined this patient.: Yes I have fully participated in the care of the patient.: Yes I have reviewed all pertinent clinical information: Yes Notes (Text): 04/21/18 14:14 Medical record note made by the resident after discussion with my direction and input after the patient was personally seen and examined by me. I have reviewed the chart and agree that the record accurately reflects by personal performance of the history, physical exam, data review, and medical decision-making, in the course for the patient. I have also personally directed the plan of care. Medical record note made by the resident after discussion with my direction and input after the patient was personally seen and examined by me. I have reviewed the chart and agree that the record accurately reflects by personal performance of the history, physical exam, data review, and medical decision-making, in the course for the patient. I have also personally directed the plan of care 43 year old male with past medical history of DMII and HTN presented with right sided scrotal lesion and swelling, found to have Scrotal abscess and cellulitis. We will start patient on broad spectrum IV antibiotics. We will get surgery and ID consult. We will follow up cultures. We will monitor blood sugars closely. Management plan was discussed in detail with patient. Education was provided.
[2018-04-16] MEDS ORDERED: Piperacillin/Tazobact 3.375 gm 100 ML IVPB SCH (14:00)
--- NOTE | 2018-04-16 16:10 | RAD ---
Date of service: 04/16/2018 PROCEDURE: CHEST RADIOGRAPH, 1 VIEW HISTORY: OR clearance COMPARISON: None available. FINDINGS: LUNGS: The lungs are well inflated. There is discoid atelectasis in the right upper lobe. The left lung is clear PLEURA: No pneumothorax or pleural effusion. CARDIOVASCULAR: The heart is normal in size. No aortic atherosclerotic calcifications present. OSSEOUS STRUCTURES: Within normal limits for the patient's age. VISUALIZED UPPER ABDOMEN: Normal. OTHER FINDINGS: None. IMPRESSION: No active pulmonary disease. Discoid atelectasis in the right upper lobe. Follow-up after medical management is recommended to ensure complete resolution as post obstructive atelectasis cannot be entirely excluded.
--- NOTE | 2018-04-16 16:13 | CON ---
DATE: 04/16/2018 The patient is in the emergency room. CHIEF COMPLAINT: Painful infection of the scrotal area x4-5 days duration. HISTORY OF PRESENT ILLNESS: This is a 43-year-old morbidly obese male with a BMI of 47, hypertension, diabetic, noncompliant to his treatment for his diabetes, who has had a history of hand surgery. HE HAS NO KNOWN ALLERGIES, now admitted, found to have perineal area under the scrotal area abscess. Infectious Disease consultation requested. REVIEW OF SYSTEMS: The patient's review of systems performed. Low-grade fevers and occasional chills. No chest pain, shortness of breath or cough. No hemoptysis. No dysuria or frequency. No constipation. PAST MEDICAL HISTORY: Significant for hypertension, diabetes, morbid obesity, BMI of 47. PAST SURGICAL HISTORY: Significant for hand surgery. ALLERGIES: THE PATIENT HAS NO KNOWN ALLERGIES. MEDICATIONS: Medications at home include the patient to be on amlodipine, losartan, hydrochlorothiazide, glipizide, atenolol, and metformin. PHYSICAL EXAMINATION: GENERAL: He is in bed with his at the bedside. VITAL SIGNS: Temperature of 99.1, blood pressure is 130/80, heart rate of 93, respiratory rate of 18. HEENT: Examination of HEENT is unremarkable. NECK: Supple. LUNGS: Have decreased breath sounds. HEART: Normal S1, S2. ABDOMEN: Soft, nontender. GENITOURINARY: Examination of the perineal is an indurated large abscess, erythematous area rounded. LABORATORY DATA: Laboratory examination reveals a white count of 10.4, hemoglobin of 13, platelets of 251. Chemistries are noted and creatinine is 1.3 with a GFR greater than 60, glucose 379, and alk phos is 144. CAT scan of the abdomen and pelvis is reviewed. 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 We will treat the patient with Zyvox, Zosyn, and clindamycin pending culture results. I have discussed it with the surgical team for surgical involvement, and incision and drainage and debridement, and we will also order an HIV test because of his age, and we will follow with you. Omid Friedman MD [facility] # [id number]
[2018-04-16] MEDS: Insulin Reg-HIGH-Coverage SC SCH ×2 (17:19→22:38)
[2018-04-16] MEDS ORDERED: Influenza Vaccine 60 mcg/0.5 mL SYR (4YR UP) IM ONE (17:49)
[2018-04-16] MEDS ORDERED: Pneumococcal 23-Valent Vaccine IM ONE (17:49)
--- NOTE | 2018-04-16 18:06 | CP.PCM.PCO ---
Physician Communication Note - Physician Communication Note Physician Communication Note: Pt seen w Dr. Strickland. Planned for OR 9AM.
[2018-04-16] MEDS: Linezolid 600 mg in D5W 300 ml 600 MG/300 ML BAG IVPB SCH ×2 (18:17→22:36)
--- NOTE | 2018-04-16 20:30 | CARD ---
APPROVED REPORT Date of service: 04/16/2018 EKG Measurement Heart [id number] <Conclusion> Normal sinus rhythm Normal ECG
[2018-04-16] MEDS: Piperacillin/Tazobact 3.375 gm 100 ML IVPB SCH (22:33)
[2018-04-16] MEDS: Sodium Chloride 0.9% 1,000 ML IV SCH (22:39)
[2018-04-17] MEDS: Piperacillin/Tazobact 3.375 gm 100 ML IVPB SCH ×3 (06:11→21:44)
[2018-04-17 06:39] LABS: URINE BILIRUBIN NEGATIVE (NEGATIVE); URINE BLOOD NEGATIVE (NEGATIVE); URINE GLUCOSE (UA) >=1000 mg/dL (NEGATIVE); URINE LEUKOCYTE ESTERASE NEGATIVE Leu/uL (NEGATIVE); URINE PROTEIN 30 mg/dL (<30 mg/dL); URINE UROBILINOGEN 0.2 E.U./dL (<1 E.U./dL)
[2018-04-17 06:40] LABS: URINE APPEARANCE CLEAR (CLEAR); URINE COLOR YELLOW (YELLOW)
[2018-04-17 06:52] LABS: URINE RBC 0 - 2 /hpf (0-2); URINE WBC 0 - 2 /hpf (0-6)
[2018-04-17 06:53] LABS: URINE AMORPHOUS SEDIMENT RARE /hpf
[2018-04-17] MEDS: Insulin Reg-HIGH-Coverage SC SCH ×4 (08:00→23:10)
--- NOTE | 2018-04-17 09:02 | PN ---
DATE: 04/17/2018 SUBJECTIVE: The patient is in bed in no acute distress, nontoxic. PHYSICAL EXAMINATION: VITAL SIGNS: Temperature is 98, blood pressure is 140/90, respiratory rate 16, heart rate of 90. HEENT: Unremarkable. NECK: Supple. LUNGS: Have decreased breath sounds. HEART: Normal S1, S2. ABDOMEN: Soft, nontender. LABORATORY EXAMINATION: Reveals a white count of 10,000. Coagulation is noted. Chemistries are reviewed. The creatinine of 1.3. Urinalysis is noted and review of orders reveals the patient to be on clindamycin, vancomycin, Zosyn and the patient is also on Zyvox. The patient was given a dose of vancomycin and cultures are pending. ASSESSMENT AND PLAN: This is a 43-year-old morbidly obese male with a BMI of 47, diabetic, noncompliant to his medication and was admitted now with number 1 sepsis with Wendy's disease and abscess of the perineal area and cellulitis. The patient is scheduled for incision and drainage this morning. Dr. Orantes's note is reviewed. The patient is scheduled for OR this morning and we will follow with you. Omid Friedman MD
[2018-04-17] MEDS ORDERED: Propofol 10 mg/ml Inj (20 ML) ONE (09:37)
[2018-04-17] MEDS ORDERED: Bupivacaine 0.5% 50 ML IJ ONE ×2 (09:59→10:00)
[2018-04-17] MEDS ORDERED: Non Formulary Medication (Losartan/Hydrochlorothiazide [Losartan-Hctz 100-25 Mg Tab] 1 EAC PO SCH (10:00)
--- NOTE | 2018-04-17 10:29 | PCM.SURG1 ---
Surgeon's Initial Post Op Note - Surgeon's Notes Surgeon: Marco A Managing Partner: Farooq PGY4, PGY2 Type of Anesthesia: General LMA, Local Pre-Operative Diagnosis: Nec Fasc Operative Findings: Pus, necrotic tissue Post-Operative Diagnosis: same Operation Performed: I&D and debridement Specimen/Specimens Removed: wound cx Estimated Blood Loss: EBL {In ML}: 25 Blood Products Given: N/A Drains Used: No Drains (Iodoform packing) Post-Op Condition: Good Date of Surgery/Procedure: 04/17/18 Time of Surgery/Procedure: 10:28
[2018-04-17] MEDS ORDERED: Oxycodone/Acetaminophen 5/325 mg Tab PO PRN (10:30)
[2018-04-17] MEDS ORDERED: Lactated Ringer's 1,000 ML IV SCH (10:45)
[2018-04-17] MEDS: Linezolid 600 mg in D5W 300 ml 600 MG/300 ML BAG IVPB SCH ×2 (11:49→21:47)
--- NOTE | 2018-04-17 13:04 | CP.PCM.PN ---
<Freda Woods - Last Filed: 04/17/18 16:26> Subjective - Date & Time of Evaluation Date of Evaluation: 04/17/18 Time of Evaluation: 07:30 - Subjective Subjective: pgy-3 progress note for hospiatlist service patient seen and examined at bedside. No acute distress. Nurse reports no events overnight. patient denied pain in scrotal area however there is drainage. Patient denies chest pain, sob ,abd pain. No other complaints at this time. Objective - Vital Signs/Intake and Output Vital Signs (last 24 hours): Temp Pulse Resp BP Pulse Ox 98.3 F 72 17 145/93 H 98 04/17/18 11:13 04/17/18 11:47 04/17/18 11:13 04/17/18 11:47 04/17/18 11:13 Intake and Output: 04/17/18 04/17/18 06:59 18:59 Intake Total 360 Balance 360 - Medications Medications: Current Medications Amlodipine Besylate (Norvasc) 10 mg PO DAILY [facility] Last Admin: 04/17/18 11:47 Dose: 10 mg Atenolol (Tenormin) 50 mg PO DAILY [facility] Last Admin: 04/17/18 11:47 Dose: 50 mg Hydrochlorothiazide (Hydrodiuril) 25 mg PO DAILY [facility] Last Admin: 04/17/18 11:48 Dose: 25 mg Sodium Chloride (Sodium Chloride 0.9%) 1,000 mls @ 150 mls/hr IV .Q6H40M [facility] Last Admin: 04/16/18 22:39 Dose: 150 mls/hr Linezolid (Zyvox 600mg/300ml D5w) 600 mg in 300 mls @ 200 mls/hr IVPB Q12 [facility]; Protocol Stop: 04/25/18 15:34 Last Admin: 04/17/18 11:49 Dose: 200 mls/hr Piperacillin Sod/Tazobactam Sod (Zosyn 3.375 In Ns 100ml) 100 mls @ 25 mls/hr IVPB Q8 [facility]; Protocol Stop: 04/24/18 22:01 Last Admin: 04/17/18 06:11 Dose: 25 mls/hr Clindamycin Phosphate 900 mg/ (Sodium Chloride) 106 mls @ 106 mls/hr IVPB Q8 [facility]; Protocol Stop: 04/25/18 15:46 Last Admin: 04/17/18 06:11 Dose: 106 mls/hr Insulin Human Regular (Humulin R High) 0 units SC ACHS [facility]; Protocol Last Admin: 04/17/18 11:51 Dose: 7 unit Ketorolac Tromethamine (Toradol) 30 mg IVP Q6 PRN PRN Reason: Pain, Mild (1-3) Losartan Potassium (Cozaar) 100 mg PO DAILY [facility] Last Admin: 04/17/18 11:48 Dose: 100 mg Oxycodone/Acetaminophen (Percocet 5/325 Mg Tab) 1 tab PO Q4H PRN PRN Reason: Pain, moderate (4-7) Stop: 04/20/18 10:31 Pantoprazole Sodium (Protonix Inj) 40 mg IVP DAILY [facility] Last Admin: 04/17/18 11:50 Dose: 40 mg - Labs Labs: 04/16/18 10:00 04/16/18 10:00 PT 14.6 SECONDS (9.4-12.5) H 04/16/18 10:05 INR 1.26 04/16/18 10:05 APTT 32.2 Seconds (25.1-36.5) 04/16/18 10:05 Assessment and Plan - Assessment and Plan (Free Text) Assessment: 43 year old male with past medical history of DMII and HTN presented with right sided scrotal lesion and swelling, found to have Scrotal abscess and cellulitis. Plan: Scrotal abscess and cellulitis - afebrile, no leukocytosis - CT on 04/16/18 showed diffuse soft tissue swelling and fluid in scrotal wall, inflammatory changes at perineum and R medial gluteal SQ tissue most compatible with cellulitis, Wendy gangrene is consideration. - Surgery, ID, and urology consulted. Appreciate recs. - Patient scheduled for surgery this AM - NS @ 150 ccs/hr - continue Linezolid 600 mg IV Q12, Clindamycin 900 mg IV Q8, Zosyn 3.375 gm IV Q8 - ID following HTN - continue home meds - Losartan 100 mg PO daily - HCTZ 25 mg PO daily - Norvasc 10 mg PO daily - Atenolol 50 mg PO daily - BP controlled, continue to monitor DMII - home meds held - ISS, accuchecks PPX - SCDs - Protonix 40 mg IVP daily Case discussed with Dr. Sheets <SudeepNatejonny - Last Filed: 04/21/18 14:13> Objective - Vital Signs/Intake and Output Vital Signs (last 24 hours): Temp Pulse Resp BP Pulse Ox 98.1 F 79 20 138/80 99 04/21/18 07:00 04/21/18 09:16 04/21/18 07:00 04/21/18 09:16 04/21/18 07:00 Intake and Output: 04/21/18 04/21/18 06:59 18:59 Intake Total 1000 Output Total 800 Balance 200 - Labs Labs: 04/21/18 07:00 04/21/18 07:00 PT 14.6 SECONDS (9.4-12.5) H 04/16/18 10:05 INR 1.26 04/16/18 10:05 APTT 32.2 Seconds (25.1-36.5) 04/16/18 10:05 Attending/Attestation - Attestation I have personally seen and examined this patient.: Yes I have fully participated in the care of the patient.: Yes I have reviewed all pertinent clinical information, including history, physical exam and plan: Yes Notes (Text): 04/21/18 14:10 Medical record note made by the resident after discussion with my direction and input after the patient was personally seen and examined by me. I have reviewed the chart and agree that the record accurately reflects by personal performance of the history, physical exam, data review, and medical decision-making, in the course for the patient. I have also personally directed the plan of care.
[2018-04-17] MEDS: Sodium Chloride 0.9% 1,000 ML IV SCH (18:01)
[2018-04-17] MEDS ORDERED: Benzocaine/Menthol (Cepacol) Lozenge MT PRN (20:16)
[2018-04-17] MEDS: Vitamins A & D Oint UD Foilpak TOP PRN (21:43)
[2018-04-18] MEDS: Piperacillin/Tazobact 3.375 gm 100 ML IVPB SCH (05:48)
[2018-04-18] MEDS ORDERED: HYDROmorphone 1 mg/ml ISec IVP ONE (06:15)
[2018-04-18 07:03] LABS: BASO # 0.02 K/mm3 (0.0-2.0); BASO % 0.3 % (0.0-3.0); EOS # 0.1 (0.0-0.7); EOS % 1.8 % (1.5-5.0); GRAN # 5.53 (1.4-6.5); GRAN % 71.2 % (50.0-68.0); HEMOGLOBIN 11.8 g/dL (14.0-18.0); LYMPH # 1.2 (1.2-3.4); LYMPH % 15.4 % (22.0-35.0); MEAN CELL VOLUME 84.5 fl (80.0-105.0); MEAN CORPUSCULAR HEMOGLOBIN 26.5 pg (25.0-35.0); MEAN CORPUSCULAR HGB CONC 31.4 g/dl (31.0-37.0); MEAN PLATELET VOLUME 9.9 fl (7.0-11.0); MONO # 0.9 (0.1-0.6); MONO % 11.3 % (1.0-6.0); RBC 4.45 10^6/uL (3.5-6.1); RED CELL DISTRIBUTION WIDTH 13.5 % (11.5-14.5); WHITE BLOOD COUNT 7.8 10^3/uL (4.5-11.0)
--- NOTE | 2018-04-18 07:16 | CP.PCM.PN ---
<KristyAbiarturo L - Last Filed: 04/18/18 14:07> Subjective - Date & Time of Evaluation Date of Evaluation: 04/18/18 Time of Evaluation: 07:13 - Subjective Subjective: Resident Progress Note for Hospitalist Service Patient examined at bedside. No acute events overnight. Patient is POD#1 s/p incision and drainage, debridement of scrotal abscess. Denies fevers, chills, chest pain, shortness of breath, abdominal pain. Objective - Vital Signs/Intake and Output Vital Signs (last 24 hours): Temp Pulse Resp BP Pulse Ox 99.4 F 89 20 128/87 96 04/17/18 17:18 04/17/18 17:18 04/17/18 17:18 04/17/18 17:18 04/17/18 17:18 Intake and Output: 04/18/18 04/18/18 06:59 18:59 Intake Total 120 Output Total 900 Balance -780 - Medications Medications: Current Medications Amlodipine Besylate (Norvasc) 10 mg PO DAILY [facility] Last Admin: 04/17/18 11:47 Dose: 10 mg Atenolol (Tenormin) 50 mg PO DAILY [facility] Last Admin: 04/17/18 11:47 Dose: 50 mg Benzocaine/Menthol (Cepacol Sore Throat) 1 gen MT Q2H PRN PRN Reason: Sore Throat Last Admin: 04/17/18 21:43 Dose: 1 gen Hydrochlorothiazide (Hydrodiuril) 25 mg PO DAILY [facility] Last Admin: 04/17/18 11:48 Dose: 25 mg Sodium Chloride (Sodium Chloride 0.9%) 1,000 mls @ 150 mls/hr IV .Q6H40M [facility] Last Admin: 04/17/18 18:01 Dose: 150 mls/hr Linezolid (Zyvox 600mg/300ml D5w) 600 mg in 300 mls @ 200 mls/hr IVPB Q12 [facility]; Protocol Stop: 04/25/18 15:34 Last Admin: 04/17/18 21:47 Dose: 200 mls/hr Piperacillin Sod/Tazobactam Sod (Zosyn 3.375 In Ns 100ml) 100 mls @ 25 mls/hr IVPB Q8 [facility]; Protocol Stop: 04/24/18 22:01 Last Admin: 04/18/18 05:48 Dose: 25 mls/hr Clindamycin Phosphate 900 mg/ (Sodium Chloride) 106 mls @ 106 mls/hr IVPB Q8 [facility]; Protocol Stop: 04/25/18 15:46 Last Admin: 04/18/18 05:48 Dose: 106 mls/hr Insulin Human Regular (Humulin R High) 0 units SC ACHS [facility]; Protocol Last Admin: 04/17/18 23:10 Dose: Not Given Ketorolac Tromethamine (Toradol) 30 mg IVP Q6 PRN PRN Reason: Pain, Mild (1-3) Losartan Potassium (Cozaar) 100 mg PO DAILY [facility] Last Admin: 04/17/18 11:48 Dose: 100 mg Oxycodone/Acetaminophen (Percocet 5/325 Mg Tab) 1 tab PO Q4H PRN PRN Reason: Pain, moderate (4-7) Stop: 04/20/18 10:31 Pantoprazole Sodium (Protonix Inj) 40 mg IVP DAILY [facility] Last Admin: 04/17/18 11:50 Dose: 40 mg Vitamin A (Vitamin A & D Oint Ud Foilpak) 1 ea TOP Q2H PRN PRN Reason: Apply to affected area as need Last Admin: 04/17/18 21:43 Dose: 1 ea - Labs Labs: 04/18/18 06:30 04/16/18 10:00 PT 14.6 SECONDS (9.4-12.5) H 04/16/18 10:05 INR 1.26 04/16/18 10:05 APTT 32.2 Seconds (25.1-36.5) 04/16/18 10:05 - Additional Findings Additional findings: - Constitutional Appears: Non-toxic, No Acute Distress - Head Exam Head Exam: ATRAUMATIC, NORMOCEPHALIC - Eye Exam Eye Exam: EOMI, Normal appearance, PERRL - Respiratory Exam Respiratory Exam: Clear to Auscultation Bilateral, NORMAL BREATHING PATTERN. absent: Rales, Rhonchi, Wheezes, Respiratory Distress - Cardiovascular Exam Cardiovascular Exam: REGULAR RHYTHM, +S1, +S2. absent: Tachycardia, JVD, Systolic Murmur - GI/Abdominal Exam GI & Abdominal Exam: Normal Bowel Sounds, Soft. absent: Distended, Firm, Guarding, Rebound, Rigid, Tenderness - Exam Exam: Scrotal Swelling. absent: Testicular Tenderness, Uretheral Discharge, Bladder Distension External exam: Lesions, Swelling - Extremities Exam Extremities exam: Positive for: normal capillary refill, normal inspection, pedal pulses present. Negative for: pedal edema - Neurological Exam Neurological exam: Alert, CN II-XII Intact, Oriented x3 - Skin Skin Exam: Dry, Intact, Normal Color, Warm Assessment and Plan - Assessment and Plan (Free Text) Assessment: Patient is a 43 year old male with past medical history of T2DM and HTN presenting with chief complaint of right sided scrotal lesion and swelling, now s/p incision and drainage and debridement. Plan: Scrotal abscess and cellulitis - afebrile, no leukocytosis - CT on 04/16/18 showed diffuse soft tissue swelling and fluid in scrotal wall, inflammatory changes at perineum and R medial gluteal SQ tissue most compatible with cellulitis, Wendy gangrene is consideration. - Surgery, ID, and urology consulted. Appreciate recs. - continue Linezolid 600 mg IV Q12 - UCx and BCx neg x2, wound culture grew MRSA - plan for wound vac as per surgery recs HTN - continue home meds - Losartan 100 mg PO daily - HCTZ 25 mg PO daily - Norvasc 10 mg PO daily - Atenolol 50 mg PO daily - BP controlled, continue to monitor T2DM - home meds held - ISS, accuchecks PPX - SCDs - Protonix 40 mg IVP daily Case discussed with Dr. Sudeep Wagner PGY-1 <Ginna Sheets - Last Filed: 04/21/18 14:10> Objective - Vital Signs/Intake and Output Vital Signs (last 24 hours): Temp Pulse Resp BP Pulse Ox 98.1 F 79 20 138/80 99 04/21/18 07:00 04/21/18 09:16 04/21/18 07:00 04/21/18 09:16 04/21/18 07:00 Intake and Output: 04/21/18 04/21/18 06:59 18:59 Intake Total 1000 Output Total 800 Balance 200 - Labs Labs: 04/21/18 07:00 04/21/18 07:00 PT 14.6 SECONDS (9.4-12.5) H 04/16/18 10:05 INR 1.26 04/16/18 10:05 APTT 32.2 Seconds (25.1-36.5) 04/16/18 10:05 Attending/Attestation - Attestation I have personally seen and examined this patient.: Yes I have fully participated in the care of the patient.: Yes I have reviewed all pertinent clinical information, including history, physical exam and plan: Yes Notes (Text): 04/21/18 14:10 Medical record note made by the resident after discussion with my direction and input after the patient was personally seen and examined by me. I have reviewed the chart and agree that the record accurately reflects by personal performance of the history, physical exam, data review, and medical decision-making, in the course for the patient. I have also personally directed the plan of care.
[2018-04-18 07:23] LABS: ALB/GLOB RATIO 0.9 (1.1-1.8); ALBUMIN 3.3 g/dL (3.0-4.8); ALT/SGPT 34 U/L (7-56); AST/SGOT 21 U/L (17-59); BLOOD UREA NITROGEN 12 mg/dL (7-21); CALCIUM 8.7 mg/dL (8.4-10.5); GFR NON-AFRICAN AMERICAN > 60
[2018-04-18] MEDS: Insulin Reg-HIGH-Coverage SC SCH ×4 (08:15→21:58)
--- NOTE | 2018-04-18 08:32 | OP ---
PROCEDURE DATE: 04/17/2018 PREOPERATIVE DIAGNOSIS: Necrotizing fasciitis of the perineum. POSTOPERATIVE DIAGNOSIS: Necrotizing fasciitis of the perineum. PROCEDURE: Incision and drainage and debridement of necrotizing fasciitis. INDICATIONS FOR PROCEDURE: This is a 43-year-old gentleman with past medical history of hypertension, diabetes, and obesity who presented to the ER for evaluation of pain and swelling of his perineum which was accompanied by the drainage of foul-smelling pus. CAT scan done in the ED showed findings of soft tissue swelling and fluid in the scrotal wall and inflammatory changes at the base of the perineum. Wendy's gangrene was a consideration. As a result, surgical debridement was indicated. DESCRIPTION OF THE PROCEDURE: After informed consent was obtained, the patient was taken to the operating room and underwent general anesthesia. All appropriate monitoring devices were in place. The patient was then placed in the lithotomy position, and the perineum was prepped and draped in the usual sterile fashion. Next, an incision was made in the perineum to the right of the midline. The incision was deepened until an abscess cavity was encountered. At this time, cultures was taken and then the abscess cavity was bluntly probed, and loculations were broken. Next, the necrotic tissue was sharply debrided. The Versajet was used to remove the additional necrotic tissue that was present in the abscess cavity. The area was then thoroughly irrigated with Betadine and peroxide. Hemostasis was then achieved with electrocautery. Finally, the abscess cavity was then packed with iodoform, and the dressing was applied. The patient tolerated the procedure well and was transferred to PACU. Justen Trivedi DO Hugh Strickland MD
[2018-04-18] MEDS: Linezolid 600 mg in D5W 300 ml 600 MG/300 ML BAG IVPB SCH (09:52)
--- NOTE | 2018-04-18 12:47 | CP.PCM.PN ---
<Pj Orantes - Last Filed: 04/18/18 12:42> Subjective - Date & Time of Evaluation Date of Evaluation: 04/18/18 Time of Evaluation: 12:43 - Subjective Subjective: Surgery Pt seen and examined. No acute events. Denies pain. Packing changed this AM. Denies nausea, diarrhea, CP , SOB. Ambulates. Objective - Vital Signs/Intake and Output Vital Signs (last 24 hours): Temp Pulse Resp BP Pulse Ox 98.7 F 88 18 142/85 95 04/18/18 08:23 04/18/18 09:53 04/18/18 08:23 04/18/18 09:53 04/18/18 08:23 Intake and Output: 04/18/18 04/18/18 06:59 18:59 Intake Total 120 Output Total 900 Balance -780 - Medications Medications: Current Medications Amlodipine Besylate (Norvasc) 10 mg PO DAILY [facility] Last Admin: 04/18/18 09:53 Dose: 10 mg Atenolol (Tenormin) 50 mg PO DAILY [facility] Last Admin: 04/18/18 09:53 Dose: 50 mg Benzocaine/Menthol (Cepacol Sore Throat) 1 gen MT Q2H PRN PRN Reason: Sore Throat Last Admin: 04/17/18 21:43 Dose: 1 gen Hydrochlorothiazide (Hydrodiuril) 25 mg PO DAILY [facility] Last Admin: 04/18/18 09:53 Dose: 25 mg Linezolid (Zyvox 600mg/300ml D5w) 600 mg in 300 mls @ 200 mls/hr IVPB Q12 [facility]; Protocol Stop: 04/25/18 15:34 Last Admin: 04/18/18 09:52 Dose: 200 mls/hr Piperacillin Sod/Tazobactam Sod (Zosyn 3.375 In Ns 100ml) 100 mls @ 25 mls/hr IVPB Q8 [facility]; Protocol Stop: 04/24/18 22:01 Last Admin: 04/18/18 05:48 Dose: 25 mls/hr Clindamycin Phosphate 900 mg/ (Sodium Chloride) 106 mls @ 106 mls/hr IVPB Q8 [facility]; Protocol Stop: 04/25/18 15:46 Last Admin: 04/18/18 05:48 Dose: 106 mls/hr Insulin Human Regular (Humulin R High) 0 units SC ACHS [facility]; Protocol Last Admin: 04/18/18 08:15 Dose: 7 unit Ketorolac Tromethamine (Toradol) 30 mg IVP Q6 PRN PRN Reason: Pain, Mild (1-3) Losartan Potassium (Cozaar) 100 mg PO DAILY [facility] Last Admin: 04/18/18 09:53 Dose: 100 mg Oxycodone/Acetaminophen (Percocet 5/325 Mg Tab) 1 tab PO Q4H PRN PRN Reason: Pain, moderate (4-7) Stop: 04/20/18 10:31 Pantoprazole Sodium (Protonix Inj) 40 mg IVP DAILY [facility] Last Admin: 04/18/18 09:52 Dose: 40 mg Vitamin A (Vitamin A & D Oint Ud Foilpak) 1 ea TOP Q2H PRN PRN Reason: Apply to affected area as need Last Admin: 04/17/18 21:43 Dose: 1 ea - Labs Labs: 04/18/18 06:30 04/18/18 06:30 PT 14.6 SECONDS (9.4-12.5) H 04/16/18 10:05 INR 1.26 04/16/18 10:05 APTT 32.2 Seconds (25.1-36.5) 04/16/18 10:05 - Constitutional Appears: No Acute Distress - Head Exam Head Exam: ATRAUMATIC, NORMAL INSPECTION, NORMOCEPHALIC - Eye Exam Eye Exam: EOMI, Normal appearance, PERRL Pupil Exam: NORMAL ACCOMODATION, PERRL - ENT Exam ENT Exam: Mucous Membranes Moist, Normal Exam - Neck Exam Neck Exam: Full ROM - Respiratory Exam Respiratory Exam: NORMAL BREATHING PATTERN - Cardiovascular Exam Cardiovascular Exam: REGULAR RHYTHM - GI/Abdominal Exam GI & Abdominal Exam: Soft. absent: Distended - Exam Exam: Scrotal Swelling. absent: NORMAL INSPECTION External exam: Swelling. absent: NORMAL EXTERNAL EXAM Additional comments: perineal area has [id number] abscess cavity. Packed. - Extremities Exam Extremities Exam: Full ROM, Normal Inspection - Back Exam Back Exam: NORMAL INSPECTION - Neurological Exam Neurological Exam: Alert, Awake, Normal Gait, Oriented x3 - Psychiatric Exam Psychiatric exam: Normal Affect, Normal Mood - Skin Skin Exam: Erythema, Warm. absent: Dry, Intact, Normal Color Assessment and Plan - Assessment and Plan (Free Text) Assessment: POD 1 sp Incision and drainage, wound debridement for scrotal abscess Initial wound cx MRSA Plan: f/u OR cx continues ABX per ID Will plan on WOund vac on Sat when it is ready Possible Home wound vac REgular diet Pain control DW Dr. Strickland <Hugh Strickland - Last Filed: 04/18/18 17:09> Objective - Vital Signs/Intake and Output Vital Signs (last 24 hours): Temp Pulse Resp BP Pulse Ox 97.9 F 81 20 138/79 97 04/18/18 15:00 04/18/18 15:00 04/18/18 15:00 04/18/18 15:00 04/18/18 15:00 Intake and Output: 04/18/18 04/18/18 06:59 18:59 Intake Total 120 Output Total 900 Balance -780 - Medications Medications: Current Medications Amlodipine Besylate (Norvasc) 10 mg PO DAILY [facility] Last Admin: 04/18/18 09:53 Dose: 10 mg Atenolol (Tenormin) 50 mg PO DAILY [facility] Last Admin: 04/18/18 09:53 Dose: 50 mg Benzocaine/Menthol (Cepacol Sore Throat) 1 gen MT Q2H PRN PRN Reason: Sore Throat Last Admin: 04/17/18 21:43 Dose: 1 gen Hydrochlorothiazide (Hydrodiuril) 25 mg PO DAILY [facility] Last Admin: 04/18/18 09:53 Dose: 25 mg Hydromorphone HCl (Dilaudid) 1 mg IVP ONCE ONE Stop: 04/19/18 06:01 Insulin Human Regular (Humulin R High) 0 units SC [facility]; Protocol Last Admin: 04/18/18 12:49 Dose: 10 unit Ketorolac Tromethamine (Toradol) 30 mg IVP Q6 PRN PRN Reason: Pain, Mild (1-3) Linezolid (Zyvox) 600 mg PO BID [facility]; Protocol Stop: 04/23/18 18:01 Losartan Potassium (Cozaar) 100 mg PO DAILY [facility] Last Admin: 04/18/18 09:53 Dose: 100 mg Oxycodone/Acetaminophen (Percocet 5/325 Mg Tab) 1 tab PO Q4H PRN PRN Reason: Pain, moderate (4-7) Stop: 04/20/18 10:31 Pantoprazole Sodium (Protonix Ec Tab) 40 mg PO ACB [facility] Vitamin A (Vitamin A & D Oint Ud Foilpak) 1 ea TOP Q2H PRN PRN Reason: Apply to affected area as need Last Admin: 04/17/18 21:43 Dose: 1 ea - Labs Labs: 04/18/18 06:30 04/18/18 06:30 PT 14.6 SECONDS (9.4-12.5) H 04/16/18 10:05 INR 1.26 04/16/18 10:05 APTT 32.2 Seconds (25.1-36.5) 04/16/18 10:05 Assessment and Plan - Assessment and Plan (Free Text) Assessment: Patient was seen, evaluated and examined by me at the bedside. I agree with assessment and plan as stated in the resident's note.We will continue to closely monitor the wound for fasciitis, debrided father if indicated and continue to do daily dressings.
--- NOTE | 2018-04-18 18:37 | PN ---
DATE: 04/18/2018 SUBJECTIVE: The patient seen earlier today. PHYSICAL EXAMINATION: VITAL SIGNS: Temperature is 98, blood pressure is 140/80, respiratory rate of 18. HEENT: Unremarkable. NECK: Supple. LUNGS: Have decreased breath sounds. HEART: Normal S1, S2. ABDOMEN: Soft. LABORATORY DATA: Reveals a white count of 7.8, hemoglobin of 11. BUN of 12, creatinine of 1.2. Urinalysis is noted. Serology HIV is negative. Microbiology reveals MRSA from the abscess culture. Sacral culture is negative. Blood cultures are negative. ASSESSMENT AND PLAN: This is a 43-year-old male with morbid obesity, with diabetes mellitus , presenting with perineal abscess with methicillin-resistant Staphylococcus aureus. We will discontinue the clindamycin. Discontinue the meropenem and change the Zyvox to orally. The patient had surgical intervention. Extensive debridement of the skin and fascia and fat of the perineum. Postoperative diagnosis of necrotizing fasciitis on perineum is noted. Extensive debridement of skin and fascia with methicillin-resistant Staphylococcus aureus necrotizing fasciitis. Patient is doing much better. Intravenous access is in an issue and unable to get intravenous access. We will change the oral Zyvox for methicillin-resistant Staphylococcus aureus abscess status post incision and drainage and wound debridement culture for methicillin-resistant Staphylococcus aureus. Wound vac is a possibility. We will follow with you. Omid Friedman MD
[2018-04-18] MEDS: Insulin Detemir 100 units/ml Vial (Levemir) SC SCH (21:58)
[2018-04-19] MEDS ORDERED: HYDROmorphone 1 mg/ml ISec IVP ONE (06:00)
[2018-04-19 07:09] LABS: BASO # 0.01 K/mm3 (0.0-2.0); BASO % 0.1 % (0.0-3.0); EOS # 0.2 (0.0-0.7); EOS % 2.7 % (1.5-5.0); GRAN # 4.58 (1.4-6.5); HEMOGLOBIN 12.8 g/dL (14.0-18.0); LYMPH # 1.4 (1.2-3.4); LYMPH % 20.9 % (22.0-35.0); MEAN CELL VOLUME 84.4 fl (80.0-105.0); MEAN CORPUSCULAR HEMOGLOBIN 27.4 pg (25.0-35.0); MEAN CORPUSCULAR HGB CONC 32.5 g/dl (31.0-37.0); MEAN PLATELET VOLUME 9.5 fl (7.0-11.0); MONO # 0.6 (0.1-0.6); MONO % 8.3 % (1.0-6.0); RBC 4.67 10^6/uL (3.5-6.1); RED CELL DISTRIBUTION WIDTH 13.5 % (11.5-14.5); WHITE BLOOD COUNT 6.7 10^3/uL (4.5-11.0)
--- NOTE | 2018-04-19 07:30 | CP.PCM.PN ---
<Evaristo Wagner Mallika - Last Filed: 04/19/18 15:55> Subjective - Date & Time of Evaluation Date of Evaluation: 04/19/18 Time of Evaluation: 07:29 - Subjective Subjective: Resident Progress Note for Hospitalist Service Patient examined at bedside. No acute events overnight. Patient states he has a pressure like sensation. Denies pain, fevers, chills, nausea, vomiting, abdominal pain. Objective - Vital Signs/Intake and Output Vital Signs (last 24 hours): Temp Pulse Resp BP Pulse Ox 98.2 F 79 20 138/91 H 98 04/18/18 22:40 04/18/18 22:40 04/18/18 22:40 04/18/18 22:40 04/18/18 22:40 - Medications Medications: Current Medications Amlodipine Besylate (Norvasc) 10 mg PO DAILY [facility] Last Admin: 04/18/18 09:53 Dose: 10 mg Atenolol (Tenormin) 50 mg PO DAILY [facility] Last Admin: 04/18/18 09:53 Dose: 50 mg Benzocaine/Menthol (Cepacol Sore Throat) 1 gen MT Q2H PRN PRN Reason: Sore Throat Last Admin: 04/17/18 21:43 Dose: 1 gen Hydrochlorothiazide (Hydrodiuril) 25 mg PO DAILY [facility] Last Admin: 04/18/18 09:53 Dose: 25 mg Insulin Detemir (Levemir) 10 unit SC HS [facility] Last Admin: 04/18/18 21:58 Dose: 10 applic Insulin Human Regular (Humulin R High) 0 units SC [facility]; Protocol Last Admin: 04/18/18 21:58 Dose: Not Given Ketorolac Tromethamine (Toradol) 30 mg IVP Q6 PRN PRN Reason: Pain, Mild (1-3) Linezolid (Zyvox) 600 mg PO BID [facility]; Protocol Stop: 04/23/18 18:01 Last Admin: 04/18/18 17:49 Dose: 600 mg Losartan Potassium (Cozaar) 100 mg PO DAILY [facility] Last Admin: 04/18/18 09:53 Dose: 100 mg Oxycodone/Acetaminophen (Percocet 5/325 Mg Tab) 1 tab PO Q4H PRN PRN Reason: Pain, moderate (4-7) Stop: 04/20/18 10:31 Pantoprazole Sodium (Protonix Ec Tab) 40 mg PO ACB [facility] Vitamin A (Vitamin A & D Oint Ud Foilpak) 1 ea TOP Q2H PRN PRN Reason: Apply to affected area as need Last Admin: 04/17/18 21:43 Dose: 1 ea - Labs Labs: 04/19/18 06:30 04/18/18 06:30 PT 14.6 SECONDS (9.4-12.5) H 04/16/18 10:05 INR 1.26 04/16/18 10:05 APTT 32.2 Seconds (25.1-36.5) 04/16/18 10:05 - Additional Findings Additional findings: - Constitutional Appears: Non-toxic, No Acute Distress - Head Exam Head Exam: ATRAUMATIC, NORMOCEPHALIC - Eye Exam Eye Exam: EOMI, Normal appearance, PERRL - Respiratory Exam Respiratory Exam: Clear to Auscultation Bilateral, NORMAL BREATHING PATTERN. absent: Rales, Rhonchi, Wheezes, Respiratory Distress - Cardiovascular Exam Cardiovascular Exam: REGULAR RHYTHM, +S1, +S2. absent: Tachycardia, JVD, Systolic Murmur - GI/Abdominal Exam GI & Abdominal Exam: Normal Bowel Sounds, Soft. absent: Distended, Firm, Guarding, Rebound, Rigid, Tenderness - Exam Exam: Scrotal Swelling. absent: Testicular Tenderness, Uretheral Discharge, Bladder Distension External exam: Lesions, Swelling - Extremities Exam Extremities exam: Positive for: normal capillary refill, normal inspection. Negative for: pedal edema - Neurological Exam Neurological exam: Alert, CN II-XII Intact, Oriented x3 - Skin Skin Exam: Dry, Intact, Normal Color, Warm Assessment and Plan - Assessment and Plan (Free Text) Assessment: Patient is a 43 year old male with past medical history of T2DM and HTN presenting with chief complaint of right sided scrotal lesion and swelling, now s/p incision and drainage and debridement POD#2. Plan: Scrotal abscess and cellulitis - afebrile, no leukocytosis - CT on 04/16/18 showed diffuse soft tissue swelling and fluid in scrotal wall, inflammatory changes at perineum and R medial gluteal SQ tissue most compatible with cellulitis, Wendy gangrene is consideration. - Surgery, ID, and urology consulted. Appreciate recs. - continue Linezolid 600 mg IV Q12 - UCx and BCx neg x2, wound culture grew MRSA - plan for wound vac as per surgery recs HTN - continue home meds - Losartan 100 mg PO daily - HCTZ 25 mg PO daily - Norvasc 10 mg PO daily - Atenolol 50 mg PO daily - BP controlled, continue to monitor T2DM - glipizide restarted - metformin held - ISS, accuchecks PPX - SCDs - Protonix 40 mg IVP daily Case discussed with Dr. Sudeep Wagner PGY-1 <Ginna Sheets - Last Filed: 04/21/18 14:09> Objective - Vital Signs/Intake and Output Vital Signs (last 24 hours): Temp Pulse Resp BP Pulse Ox 98.1 F 79 20 138/80 99 04/21/18 07:00 04/21/18 09:16 04/21/18 07:00 04/21/18 09:16 04/21/18 07:00 Intake and Output: 04/21/18 04/21/18 06:59 18:59 Intake Total 1000 Output Total 800 Balance 200 - Labs Labs: 04/21/18 07:00 04/21/18 07:00 PT 14.6 SECONDS (9.4-12.5) H 04/16/18 10:05 INR 1.26 04/16/18 10:05 APTT 32.2 Seconds (25.1-36.5) 04/16/18 10:05 Attending/Attestation - Attestation I have personally seen and examined this patient.: Yes I have fully participated in the care of the patient.: Yes I have reviewed all pertinent clinical information, including history, physical exam and plan: Yes Notes (Text): 04/21/18 14:09 Medical record note made by the resident after discussion with my direction and input after the patient was personally seen and examined by me. I have reviewed the chart and agree that the record accurately reflects by personal performance of the history, physical exam, data review, and medical decision-making, in the course for the patient. I have also personally directed the plan of care.
[2018-04-19 07:44] LABS: ALBUMIN 3.5 g/dL (3.0-4.8); ALT/SGPT 32 U/L (7-56); AST/SGOT 40 U/L (17-59); BLOOD UREA NITROGEN 10 mg/dL (7-21); GFR NON-AFRICAN AMERICAN > 60
[2018-04-19] MEDS: Insulin Reg-HIGH-Coverage SC SCH ×4 (08:22→22:09)
[2018-04-19] MEDS: Pantoprazole 40 mg EC Tab PO SCH (10:32)
--- NOTE | 2018-04-19 11:20 | CP.PCM.PN ---
Subjective - Date & Time of Evaluation Date of Evaluation: 04/19/18 Time of Evaluation: 11:16 - Subjective Subjective: Surgery: Dr. Newsome Pt seen and examined. No acute events overnight. Only complaint is scrotal/penile swelling/pain. Objective - Vital Signs/Intake and Output Vital Signs (last 24 hours): Temp Pulse Resp BP Pulse Ox 98.2 F 81 20 131/68 98 04/19/18 06:00 04/19/18 06:00 04/19/18 06:00 04/19/18 10:32 04/19/18 06:00 - Medications Medications: Current Medications Amlodipine Besylate (Norvasc) 10 mg PO DAILY [facility] Last Admin: 04/19/18 10:32 Dose: 10 mg Atenolol (Tenormin) 50 mg PO DAILY [facility] Last Admin: 04/19/18 10:32 Dose: 50 mg Benzocaine/Menthol (Cepacol Sore Throat) 1 gen MT Q2H PRN PRN Reason: Sore Throat Last Admin: 04/17/18 21:43 Dose: 1 gen Glipizide (Glucotrol) 10 mg PO DAILY [facility] Last Admin: 04/19/18 10:33 Dose: 10 mg Hydrochlorothiazide (Hydrodiuril) 25 mg PO DAILY [facility] Last Admin: 04/19/18 10:32 Dose: 25 mg Insulin Detemir (Levemir) 10 unit SC HS [facility] Last Admin: 04/18/18 21:58 Dose: 10 applic Insulin Human Regular (Humulin R High) 0 units SC [facility]; Protocol Last Admin: 04/19/18 08:22 Dose: 7 unit Ketorolac Tromethamine (Toradol) 30 mg IVP Q6 PRN PRN Reason: Pain, Mild (1-3) Linezolid (Zyvox) 600 mg PO BID [facility]; Protocol Stop: 04/23/18 18:01 Last Admin: 04/19/18 10:32 Dose: 600 mg Losartan Potassium (Cozaar) 100 mg PO DAILY [facility] Last Admin: 04/18/18 09:53 Dose: 100 mg Oxycodone/Acetaminophen (Percocet 5/325 Mg Tab) 1 tab PO Q4H PRN PRN Reason: Pain, moderate (4-7) Stop: 04/20/18 10:31 Pantoprazole Sodium (Protonix Ec Tab) 40 mg PO ACB [facility] Last Admin: 04/19/18 10:32 Dose: 40 mg Vitamin A (Vitamin A & D Oint Ud Foilpak) 1 ea TOP Q2H PRN PRN Reason: Apply to affected area as need Last Admin: 04/17/18 21:43 Dose: 1 ea - Labs Labs: 04/19/18 06:30 04/19/18 06:30 PT 14.6 SECONDS (9.4-12.5) H 04/16/18 10:05 INR 1.26 04/16/18 10:05 APTT 32.2 Seconds (25.1-36.5) 04/16/18 10:05 - Constitutional Appears: Non-toxic, No Acute Distress - Head Exam Head Exam: ATRAUMATIC, NORMOCEPHALIC - Eye Exam Eye Exam: EOMI - ENT Exam ENT Exam: Mucous Membranes Moist - Neck Exam Neck Exam: Full ROM - Respiratory Exam Respiratory Exam: NORMAL BREATHING PATTERN. absent: Accessory Muscle Use, Respiratory Distress - GI/Abdominal Exam GI & Abdominal Exam: Soft. absent: Tenderness - Exam Additional comments: s/p I&D of perineal abscess, clean wound, no drainage, edematous penis/scrotum, mildly tender to touch - Neurological Exam Neurological Exam: Alert, Awake, Oriented x3 Assessment and Plan - Assessment and Plan (Free Text) Assessment: 43M w. perineal abscess, s/p I&D w. debridement, POD#2 Plan: -c/w daily iodoform packing changes -scrotal support -warm compress to penis/scrotum 20min TID -Pt needs tighter glycemic control, recommend resuming home meds -abx per ID -Recommend TCU/[facility] -d/w attending [facility] PGY4
--- NOTE | 2018-04-19 15:44 | CP.PCM.PN ---
<Reinier Coronado - Last Filed: 04/19/18 15:41> Subjective - Date & Time of Evaluation Date of Evaluation: 04/19/18 Time of Evaluation: 09:30 - Subjective Subjective: ID Progress Note Patient seen and examined at bedside. Patient admits to pain in his scrotum. Denies chest pain, fever, chills, shortness of breath. Objective - Vital Signs/Intake and Output Vital Signs (last 24 hours): Temp Pulse Resp BP Pulse Ox 98.2 F 81 20 131/68 98 04/19/18 06:00 04/19/18 06:00 04/19/18 06:00 04/19/18 10:32 04/19/18 06:00 - Medications Medications: Current Medications Amlodipine Besylate (Norvasc) 10 mg PO DAILY [facility] Last Admin: 04/19/18 10:32 Dose: 10 mg Atenolol (Tenormin) 50 mg PO DAILY [facility] Last Admin: 04/19/18 10:32 Dose: 50 mg Benzocaine/Menthol (Cepacol Sore Throat) 1 gen MT Q2H PRN PRN Reason: Sore Throat Last Admin: 04/17/18 21:43 Dose: 1 gen Glipizide (Glucotrol) 10 mg PO DAILY [facility] Last Admin: 04/19/18 10:33 Dose: 10 mg Hydrochlorothiazide (Hydrodiuril) 25 mg PO DAILY [facility] Last Admin: 04/19/18 10:32 Dose: 25 mg Insulin Detemir (Levemir) 10 unit SC HS [facility] Last Admin: 04/18/18 21:58 Dose: 10 applic Insulin Human Regular (Humulin R High) 0 units SC ACHS [facility]; Protocol Last Admin: 04/19/18 12:01 Dose: 7 unit Ketorolac Tromethamine (Toradol) 30 mg IVP Q6 PRN PRN Reason: Pain, Mild (1-3) Linezolid (Zyvox) 600 mg PO BID [facility]; Protocol Stop: 04/23/18 18:01 Last Admin: 04/19/18 10:32 Dose: 600 mg Losartan Potassium (Cozaar) 100 mg PO DAILY [facility] Last Admin: 04/18/18 09:53 Dose: 100 mg Oxycodone/Acetaminophen (Percocet 5/325 Mg Tab) 1 tab PO Q4H PRN PRN Reason: Pain, moderate (4-7) Stop: 04/20/18 10:31 Pantoprazole Sodium (Protonix Ec Tab) 40 mg PO ACB [facility] Last Admin: 04/19/18 10:32 Dose: 40 mg Vitamin A (Vitamin A & D Oint Ud Foilpak) 1 ea TOP Q2H PRN PRN Reason: Apply to affected area as need Last Admin: 04/17/18 21:43 Dose: 1 ea - Labs Labs: 04/19/18 06:30 04/19/18 06:30 PT 14.6 SECONDS (9.4-12.5) H 04/16/18 10:05 INR 1.26 04/16/18 10:05 APTT 32.2 Seconds (25.1-36.5) 04/16/18 10:05 - Constitutional Appears: Non-toxic, No Acute Distress - Head Exam Head Exam: ATRAUMATIC, NORMAL INSPECTION, NORMOCEPHALIC - Respiratory Exam Respiratory Exam: Clear to Ausculation Bilateral, NORMAL BREATHING PATTERN - Cardiovascular Exam Cardiovascular Exam: RRR, +S1, +S2 - GI/Abdominal Exam GI & Abdominal Exam: Normal Bowel Sounds. absent: Soft, Tenderness - Exam Exam: absent: Testicular Vertical Lie Additional comments: Perineal surgical site bandaged with wound vac - Extremities Exam Extremities Exam: Normal Inspection. absent: Pedal Edema - Neurological Exam Neurological Exam: Alert, Awake, Oriented x3 - Psychiatric Exam Psychiatric exam: Normal Affect, Normal Mood - Skin Skin Exam: Intact, Normal Color, Warm Assessment and Plan - Assessment and Plan (Free Text) Plan: MRSA Perineal abscess Hx of HTN Hx of DM2 Plan: Perineal abscess with MRSA Patient will need Zyvox for 14 days total, day 2 Sacral culture growing Corynebacterium Follow up surgery recommendations Continue current medical regimen Ivonne, PGY-3 <Joni Andrews - Last Filed: 04/19/18 16:06> Objective - Vital Signs/Intake and Output Vital Signs (last 24 hours): Temp Pulse Resp BP Pulse Ox 98.2 F 81 20 131/68 98 04/19/18 06:00 04/19/18 06:00 04/19/18 06:00 04/19/18 10:32 04/19/18 06:00 - Medications Medications: Current Medications Amlodipine Besylate (Norvasc) 10 mg PO DAILY [facility] Last Admin: 04/19/18 10:32 Dose: 10 mg Atenolol (Tenormin) 50 mg PO DAILY [facility] Last Admin: 04/19/18 10:32 Dose: 50 mg Benzocaine/Menthol (Cepacol Sore Throat) 1 gen MT Q2H PRN PRN Reason: Sore Throat Last Admin: 04/17/18 21:43 Dose: 1 gen Glipizide (Glucotrol) 10 mg PO DAILY [facility] Last Admin: 04/19/18 10:33 Dose: 10 mg Hydrochlorothiazide (Hydrodiuril) 25 mg PO DAILY [facility] Last Admin: 04/19/18 10:32 Dose: 25 mg Insulin Detemir (Levemir) 10 unit SC [facility] Last Admin: 04/18/18 21:58 Dose: 10 applic Insulin Human Regular (Humulin R High) 0 units SC [facility]; Protocol Last Admin: 04/19/18 12:01 Dose: 7 unit Ketorolac Tromethamine (Toradol) 30 mg IVP Q6 PRN PRN Reason: Pain, Mild (1-3) Linezolid (Zyvox) 600 mg PO BID [facility]; Protocol Stop: 04/23/18 18:01 Last Admin: 04/19/18 10:32 Dose: 600 mg Losartan Potassium (Cozaar) 100 mg PO DAILY [facility] Last Admin: 04/18/18 09:53 Dose: 100 mg Oxycodone/Acetaminophen (Percocet 5/325 Mg Tab) 1 tab PO Q4H PRN PRN Reason: Pain, moderate (4-7) Stop: 04/20/18 10:31 Pantoprazole Sodium (Protonix Ec Tab) 40 mg PO ACB [facility] Last Admin: 04/19/18 10:32 Dose: 40 mg Vitamin A (Vitamin A & D Oint Ud Foilpak) 1 ea TOP Q2H PRN PRN Reason: Apply to affected area as need Last Admin: 04/17/18 21:43 Dose: 1 ea - Labs Labs: 04/19/18 06:30 04/19/18 06:30 PT 14.6 SECONDS (9.4-12.5) H 04/16/18 10:05 INR 1.26 04/16/18 10:05 APTT 32.2 Seconds (25.1-36.5) 04/16/18 10:05 Assessment and Plan - Assessment and Plan (Free Text) Plan: Infectious diseases Attending Physician Attestation Patient seen and examined, discussed with medical office supervisor. I have reviewed the patient's history of present illness, past medical, social, personal and family histories, pertinent physical exam findings, course so far in this hospital admission, pertinent laboratory and imaging results. I agree with the above findings, assessment and plan. In addition, continue Zyvox for this patient with perineal abscess with MRSA S/P I and D, and debridement. May need further debridement since it is in the perineal area. Will need at least 2 weeks of antibiotics, if not more and needs continued surgical follow up and monitoring.
[2018-04-19] MEDS: Insulin Detemir 100 units/ml Vial (Levemir) SC SCH (22:13)
[2018-04-20 07:00] LABS: BASO # 0.04 K/mm3 (0.0-2.0); BASO % 0.6 % (0.0-3.0); EOS # 0.2 (0.0-0.7); GRAN # 4.77 (1.4-6.5); GRAN % 68.6 % (50.0-68.0); HEMOGLOBIN 13.1 g/dL (14.0-18.0); LYMPH # 1.3 (1.2-3.4); LYMPH % 18.4 % (22.0-35.0); MEAN CELL VOLUME 84.1 fl (80.0-105.0); MEAN CORPUSCULAR HEMOGLOBIN 27.4 pg (25.0-35.0); MEAN CORPUSCULAR HGB CONC 32.6 g/dl (31.0-37.0); MEAN PLATELET VOLUME 9.5 fl (7.0-11.0); MONO # 0.7 (0.1-0.6); MONO % 9.4 % (1.0-6.0); RBC 4.78 10^6/uL (3.5-6.1); RED CELL DISTRIBUTION WIDTH 13.3 % (11.5-14.5)
[2018-04-20 08:04] LABS: ALBUMIN 3.3 g/dL (3.0-4.8); ALT/SGPT 39 U/L (7-56); AST/SGOT 21 U/L (17-59); BLOOD UREA NITROGEN 13 mg/dL (7-21); CALCIUM 9.3 mg/dL (8.4-10.5); GFR NON-AFRICAN AMERICAN > 60
[2018-04-20] MEDS: Insulin Reg-HIGH-Coverage SC SCH ×4 (08:38→21:35)
[2018-04-20] MEDS: Pantoprazole 40 mg EC Tab PO SCH (08:38)
--- NOTE | 2018-04-20 11:02 | CP.PCM.PN ---
<Justen Youngblood - Last Filed: 04/20/18 10:59> Subjective - Date & Time of Evaluation Date of Evaluation: 04/20/18 Time of Evaluation: 10:59 - Subjective Subjective: Medicine Progress Note for Dr. Sheets Patient seen and examined at bedside. No acute overnight events. Patient complaining of genital pruritis. Patient denies CP, SOB, n/v/d, abdominal pain, fever, chills, CESAR, or dizziness. Objective - Vital Signs/Intake and Output Vital Signs (last 24 hours): Temp Pulse Resp BP Pulse Ox 97.6 F 79 20 148/95 H 97 04/20/18 06:00 04/20/18 10:15 04/20/18 06:00 04/20/18 10:16 04/20/18 06:00 - Medications Medications: Current Medications Amlodipine Besylate (Norvasc) 10 mg PO DAILY [facility] Last Admin: 04/20/18 10:16 Dose: 10 mg Atenolol (Tenormin) 50 mg PO DAILY [facility] Last Admin: 04/20/18 10:15 Dose: 50 mg Benzocaine/Menthol (Cepacol Sore Throat) 1 gen MT Q2H PRN PRN Reason: Sore Throat Last Admin: 04/17/18 21:43 Dose: 1 gen Glipizide (Glucotrol) 10 mg PO DAILY [facility] Last Admin: 04/20/18 10:16 Dose: 10 mg Hydrochlorothiazide (Hydrodiuril) 25 mg PO DAILY [facility] Last Admin: 04/20/18 10:16 Dose: 25 mg Insulin Detemir (Levemir) 10 unit SC HS [facility] Last Admin: 04/19/18 22:13 Dose: 10 units Insulin Human Regular (Humulin R High) 0 units SC [facility]; Protocol Last Admin: 04/20/18 08:38 Dose: 7 unit Ketorolac Tromethamine (Toradol) 30 mg IVP Q6 PRN PRN Reason: Pain, Mild (1-3) Linezolid (Zyvox) 600 mg PO BID [facility]; Protocol Stop: 04/23/18 18:01 Last Admin: 04/20/18 10:16 Dose: 600 mg Losartan Potassium (Cozaar) 100 mg PO DAILY [facility] Last Admin: 04/20/18 10:16 Dose: 100 mg Pantoprazole Sodium (Protonix Ec Tab) 40 mg PO ACB [facility] Last Admin: 04/20/18 08:38 Dose: 40 mg Vitamin A (Vitamin A & D Oint Ud Foilpak) 1 ea TOP Q2H PRN PRN Reason: Apply to affected area as need Last Admin: 04/17/18 21:43 Dose: 1 ea - Labs Labs: 04/20/18 06:30 04/20/18 07:00 PT 14.6 SECONDS (9.4-12.5) H 04/16/18 10:05 INR 1.26 04/16/18 10:05 APTT 32.2 Seconds (25.1-36.5) 04/16/18 10:05 - Constitutional Appears: No Acute Distress - Head Exam Head Exam: NORMAL INSPECTION - Eye Exam Eye Exam: EOMI, Normal appearance, PERRL Pupil Exam: NORMAL ACCOMODATION, PERRL - ENT Exam ENT Exam: Mucous Membranes Moist, Normal Exam - Neck Exam Neck Exam: Full ROM, Normal Inspection - Respiratory Exam Respiratory Exam: Clear to Ausculation Bilateral. absent: Rales, Rhonchi, Wheezes - Cardiovascular Exam Cardiovascular Exam: RRR, +S1, +S2. absent: Clicks, Rubs, Murmur - GI/Abdominal Exam GI & Abdominal Exam: Soft. absent: Distended, Guarding, Tenderness, Rebound - Exam Exam: Scrotal Swelling, Testicular Tenderness - Extremities Exam Extremities Exam: Normal Capillary Refill, Normal Inspection - Back Exam Back Exam: NORMAL INSPECTION - Neurological Exam Neurological Exam: Alert, Awake, CN II-XII Intact, Oriented x3 - Psychiatric Exam Psychiatric exam: Normal Affect, Normal Mood - Skin Skin Exam: Dry, Intact, Normal Color, Warm Assessment and Plan - Assessment and Plan (Free Text) Assessment: Patient is a 43 year old male with past medical history of T2DM and HTN presenting with chief complaint of right sided scrotal lesion and swelling, now s/p incision and drainage and debridement POD#3. Plan: Scrotal abscess and cellulitis - afebrile, no leukocytosis - CT on 04/16/18 showed diffuse soft tissue swelling and fluid in scrotal wall, inflammatory changes at perineum and R medial gluteal SQ tissue most compatible with cellulitis. - Surgery, ID, and urology consulted. Appreciate recs. - Possible wound vac today per surgery - continue Linezolid 600 mg IV Q12 - UCx and BCx neg x2, wound culture grew MRSA - plan for wound vac as per surgery recs Genital Pruritis - Gonorrhea/Chlamydia ordered - HSV ordered - UA ordered HTN - continue home meds - Losartan 100 mg PO daily - HCTZ 25 mg PO daily - Norvasc 10 mg PO daily - Atenolol 50 mg PO daily - BP controlled, continue to monitor T2DM - glipizide restarted - metformin held - ISS, accuchecks PPX - SCDs - Protonix 40 mg IVP daily Case discussed with Dr. Sudeep Youngblood, DO PGY2 <Ginna Sheets - Last Filed: 04/21/18 14:09> Objective - Vital Signs/Intake and Output Vital Signs (last 24 hours): Temp Pulse Resp BP Pulse Ox 98.1 F 79 20 138/80 99 04/21/18 07:00 04/21/18 09:16 04/21/18 07:00 04/21/18 09:16 04/21/18 07:00 Intake and Output: 04/21/18 04/21/18 06:59 18:59 Intake Total 1000 Output Total 800 Balance 200 - Labs Labs: 04/21/18 07:00 04/21/18 07:00 PT 14.6 SECONDS (9.4-12.5) H 04/16/18 10:05 INR 1.26 04/16/18 10:05 APTT 32.2 Seconds (25.1-36.5) 04/16/18 10:05 Attending/Attestation - Attestation I have personally seen and examined this patient.: Yes I have fully participated in the care of the patient.: Yes I have reviewed all pertinent clinical information, including history, physical exam and plan: Yes Notes (Text): 04/21/18 14:09 Medical record note made by the resident after discussion with my direction and input after the patient was personally seen and examined by me. I have reviewed the chart and agree that the record accurately reflects by personal performance of the history, physical exam, data review, and medical decision-making, in the course for the patient. I have also personally directed the plan of care.
[2018-04-20 11:10] LABS: URINE APPEARANCE CLEAR (CLEAR); URINE BILIRUBIN NEGATIVE (NEGATIVE); URINE BLOOD TRACE-INTACT (NEGATIVE); URINE COLOR YELLOW (YELLOW); URINE GLUCOSE (UA) 500 mg/dL (NEGATIVE); URINE LEUKOCYTE ESTERASE NEGATIVE Leu/uL (NEGATIVE); URINE PROTEIN 100 mg/dL (<30 mg/dL); URINE UROBILINOGEN 0.2 E.U./dL (<1 E.U./dL)
[2018-04-20 11:13] LABS: URINE WBC 0 - 2 /hpf (0-6)
[2018-04-20 11:14] LABS: URINE AMORPHOUS SEDIMENT FEW /hpf; URINE BACTERIA FEW /hpf
[2018-04-20] MEDS ORDERED: HYDROmorphone 1 mg/ml ISec IVP STA (12:25)
--- NOTE | 2018-04-20 13:44 | CP.PCM.PN ---
Subjective - Date & Time of Evaluation Date of Evaluation: 04/20/18 Time of Evaluation: 13:41 - Subjective Subjective: Surgery: Dr. Strickland Pt seen and examined. No acute events overnight. States scrotum/perineum feels better. Objective - Vital Signs/Intake and Output Vital Signs (last 24 hours): Temp Pulse Resp BP Pulse Ox 97.6 F 79 20 148/95 H 97 04/20/18 06:00 04/20/18 10:15 04/20/18 06:00 04/20/18 10:16 04/20/18 06:00 - Medications Medications: Current Medications Amlodipine Besylate (Norvasc) 10 mg PO DAILY [facility] Last Admin: 04/20/18 10:16 Dose: 10 mg Atenolol (Tenormin) 50 mg PO DAILY [facility] Last Admin: 04/20/18 10:15 Dose: 50 mg Benzocaine/Menthol (Cepacol Sore Throat) 1 gen MT Q2H PRN PRN Reason: Sore Throat Last Admin: 04/17/18 21:43 Dose: 1 gen Glipizide (Glucotrol) 10 mg PO DAILY [facility] Last Admin: 04/20/18 10:16 Dose: 10 mg Hydrochlorothiazide (Hydrodiuril) 25 mg PO DAILY [facility] Last Admin: 04/20/18 10:16 Dose: 25 mg Insulin Detemir (Levemir) 10 unit SC HS [facility] Last Admin: 04/19/18 22:13 Dose: 10 units Insulin Human Regular (Humulin R High) 0 units SC ACHS [facility]; Protocol Last Admin: 04/20/18 12:13 Dose: 7 unit Ketorolac Tromethamine (Toradol) 30 mg IVP Q6 PRN PRN Reason: Pain, Mild (1-3) Linezolid (Zyvox) 600 mg PO BID [facility]; Protocol Stop: 04/23/18 18:01 Last Admin: 04/20/18 10:16 Dose: 600 mg Losartan Potassium (Cozaar) 100 mg PO DAILY [facility] Last Admin: 04/20/18 10:16 Dose: 100 mg Pantoprazole Sodium (Protonix Ec Tab) 40 mg PO ACB [facility] Last Admin: 04/20/18 08:38 Dose: 40 mg Vitamin A (Vitamin A & D Oint Ud Foilpak) 1 ea TOP Q2H PRN PRN Reason: Apply to affected area as need Last Admin: 04/17/18 21:43 Dose: 1 ea - Labs Labs: 04/20/18 06:30 04/20/18 07:00 PT 14.6 SECONDS (9.4-12.5) H 04/16/18 10:05 INR 1.26 04/16/18 10:05 APTT 32.2 Seconds (25.1-36.5) 04/16/18 10:05 - Constitutional Appears: Non-toxic, No Acute Distress - Head Exam Head Exam: ATRAUMATIC, NORMOCEPHALIC - Eye Exam Eye Exam: EOMI - ENT Exam ENT Exam: Mucous Membranes Moist - Neck Exam Neck Exam: Full ROM - Respiratory Exam Respiratory Exam: NORMAL BREATHING PATTERN - GI/Abdominal Exam GI & Abdominal Exam: Soft. absent: Tenderness - Exam Additional comments: s/p I&D, decrease size in abscess cavity, improved edema - Neurological Exam Neurological Exam: Alert, Awake, Oriented x3 Assessment and Plan - Assessment and Plan (Free Text) Assessment: 43M w. perineal abscess, s/p I&D w. debridement, POD#3 Plan: -c/w daily iodoform packing changes -scrotal support -warm compress to penis/scrotum 20min TID -Pt needs tighter glycemic control, recommend resuming home meds including metformin -abx per ID -If pt is capable of doing packing changes on his own, he is clear for D/C -d/w attending Alfredaitis PGY4
[2018-04-20] MEDS: Vitamins A & D Oint UD Foilpak TOP PRN (16:18)
--- NOTE | 2018-04-20 18:34 | PN ---
DATE: 04/20/2018 SUBJECTIVE: The patient is in bed, in no acute distress, nontoxic. PHYSICAL EXAMINATION: VITAL SIGNS: Temperature is 98, blood pressure is 140/70, respiratory rate of 22, heart rate of 73. HEENT: Unremarkable. NECK: Supple. LUNGS: Have decreased breath sounds. HEART: Normal S1 and S2. ABDOMEN: Soft. LABORATORY EXAMINATION: Reveals a white count of 7, hemoglobin of 13, platelets of 320. Chemistries reveal a BUN of 13, creatinine of 1.0. Serology is noted. Microbiology is reviewed. Dr. Justen Trivedi' progress note is reviewed. ASSESSMENT AND PLAN: This is a 43-year-old male with methicillin-resistant Staphylococcus aureus, perineal abscess, status post incision and drainage, on Zyvox. We will follow with you. Omid Friedman MD
[2018-04-20] MEDS: Insulin Detemir 100 units/ml Vial (Levemir) SC SCH (21:38)
[2018-04-21 07:38] LABS: BASO # 0.01 K/mm3 (0.0-2.0); BASO % 0.2 % (0.0-3.0); EOS # 0.2 (0.0-0.7); EOS % 2.6 % (1.5-5.0); GRAN # 4.07 (1.4-6.5); GRAN % 66.5 % (50.0-68.0); HEMOGLOBIN 12.8 g/dL (14.0-18.0); LYMPH # 1.4 (1.2-3.4); LYMPH % 22.2 % (22.0-35.0); MEAN CELL VOLUME 84.5 fl (80.0-105.0); MEAN CORPUSCULAR HEMOGLOBIN 26.9 pg (25.0-35.0); MEAN CORPUSCULAR HGB CONC 31.8 g/dl (31.0-37.0); MEAN PLATELET VOLUME 9.5 fl (7.0-11.0); MONO # 0.5 (0.1-0.6); MONO % 8.5 % (1.0-6.0); RBC 4.76 10^6/uL (3.5-6.1); RED CELL DISTRIBUTION WIDTH 13.3 % (11.5-14.5); WHITE BLOOD COUNT 6.1 10^3/uL (4.5-11.0)
--- NOTE | 2018-04-21 07:54 | CP.PCM.PN ---
Subjective - Date & Time of Evaluation Date of Evaluation: 04/21/18 Time of Evaluation: 07:51 - Subjective Subjective: Surgery Progress note- Dr. Hutton Surgery: Dr. Strickland Pt seen and examined. No acute events overnight. States scrotum/perineum feels better. Objective - Vital Signs/Intake and Output Vital Signs (last 24 hours): Temp Pulse Resp BP Pulse Ox 98.5 F 86 18 145/89 93 L 04/20/18 22:16 04/20/18 22:16 04/20/18 22:16 04/20/18 22:16 04/20/18 22:16 - Medications Medications: Current Medications Amlodipine Besylate (Norvasc) 10 mg PO DAILY [facility] Last Admin: 04/20/18 10:16 Dose: 10 mg Atenolol (Tenormin) 50 mg PO DAILY [facility] Last Admin: 04/20/18 10:15 Dose: 50 mg Benzocaine/Menthol (Cepacol Sore Throat) 1 gen MT Q2H PRN PRN Reason: Sore Throat Last Admin: 04/17/18 21:43 Dose: 1 gen Glipizide (Glucotrol) 10 mg PO DAILY [facility] Last Admin: 04/20/18 10:16 Dose: 10 mg Hydrochlorothiazide (Hydrodiuril) 25 mg PO DAILY [facility] Last Admin: 04/20/18 10:16 Dose: 25 mg Insulin Detemir (Levemir) 10 unit SC HS [facility] Last Admin: 04/20/18 21:38 Dose: 10 units Insulin Human Regular (Humulin R High) 0 units SC ACHS [facility]; Protocol Last Admin: 04/20/18 21:35 Dose: Not Given Ketorolac Tromethamine (Toradol) 30 mg IVP Q6 PRN PRN Reason: Pain, Mild (1-3) Linezolid (Zyvox) 600 mg PO BID [facility]; Protocol Stop: 04/23/18 18:01 Last Admin: 04/20/18 17:03 Dose: 600 mg Losartan Potassium (Cozaar) 100 mg PO DAILY [facility] Last Admin: 04/20/18 10:16 Dose: 100 mg Pantoprazole Sodium (Protonix Ec Tab) 40 mg PO ACB [facility] Last Admin: 04/20/18 08:38 Dose: 40 mg Vitamin A (Vitamin A & D Oint Ud Foilpak) 1 ea TOP Q2H PRN PRN Reason: Apply to affected area as need Last Admin: 04/20/18 16:18 Dose: 1 ea - Labs Labs: 04/21/18 07:00 04/20/18 07:00 PT 14.6 SECONDS (9.4-12.5) H 04/16/18 10:05 INR 1.26 04/16/18 10:05 APTT 32.2 Seconds (25.1-36.5) 04/16/18 10:05 - Constitutional Appears: Non-toxic, No Acute Distress - Head Exam Head Exam: ATRAUMATIC - Eye Exam Eye Exam: EOMI - Respiratory Exam Respiratory Exam: NORMAL BREATHING PATTERN. absent: Accessory Muscle Use, Respiratory Distress - Cardiovascular Exam Cardiovascular Exam: REGULAR RHYTHM, +S1, +S2. absent: Bradycardia, Tachycardia - GI/Abdominal Exam GI & Abdominal Exam: Soft. absent: Distended, Firm, Guarding, Rigid, Tenderness - Rectal Exam Additional comments: Right sided tiffany-anal packing w/ iodiform. wound clean and healing well - Neurological Exam Neurological Exam: Alert, Awake, Oriented x3 - Psychiatric Exam Psychiatric exam: Normal Affect - Skin Skin Exam: Intact, Warm Assessment and Plan - Assessment and Plan (Free Text) Assessment: 43M w. perineal abscess, s/p I&D w. debridement, POD#4 Plan: - c/w daily iodoform packing changes - scrotal support - warm compress to penis/scrotum 20min TID - recommend tighter glucose control, recommend resuming home meds including metformin - abx per ID - If pt is capable of doing packing changes on his own, he is clear for D/C - further recs per Dr. Hutton surgical attending PGY2
[2018-04-21 08:19] LABS: ALBUMIN 3.5 g/dL (3.0-4.8); ALT/SGPT 33 U/L (7-56); AST/SGOT 24 U/L (17-59); BLOOD UREA NITROGEN 18 mg/dL (7-21); CALCIUM 9.2 mg/dL (8.4-10.5); GFR NON-AFRICAN AMERICAN 60
[2018-04-21 08:22] VITALS: PULSE 79; RESP 20; TEMP 98.1; O2SAT 99
[2018-04-21] MEDS: Pantoprazole 40 mg EC Tab PO SCH (09:16)
[2018-04-21] MEDS: Insulin Reg-HIGH-Coverage SC SCH ×2 (09:16→12:04)
[2018-04-21 09:18] VITALS: BP 138/80
--- NOTE | 2018-04-21 11:51 | CP.PCM.DIS ---
<Justen Youngblood - Last Filed: 04/21/18 11:32> Provider - Provider Date of Admission: 04/16/18 13:34 Attending physician: Ginna Sheets MD Primary care physician: Emerita Bean MD Consults: 04/16/18 09:42 Physician Consult Stat Comment: Consulting Provider: Marbin Cabrera Consulting Physician: Marbin Cabrera Reason for Consult: scrotal infection, possible chiol's Gangrene 04/16/18 10:33 Physician Consult Stat Comment: Consulting Provider: Hugh Strickland Consulting Physician: Hugh Strickland Reason for Consult: scrotal abscess, r/o Chilo's gangrene 04/16/18 13:28 Infectious Disease Consult Stat Comment: Consulting Provider: Omid Friedman Consulting Physician: Omid Friedman Reason for Consult: scrotal abscess 04/16/18 17:49 Diabetic Education Referral Routine Comment: blood sugar in ed 379 Physician Instructions: Reason For Exam: eval 04/17/18 17:55 Nursing Referral for Wound Care Routine Comment: Physician Instructions: Reason For Exam: incision and drainage perineal area 04/18/18 12:27 Wound Care [Nursing Referral for Wound Care] Routine Comment: Physician Instructions: Reason For Exam: need wound vac please 04/18/18 12:28 Section Maintainer [Case Management Referral] Routine Comment: Physician Instructions: Reason For Exam: need home wound vac please Reason for Referral: [facility] Eval 04/19/18 11:10 TCU [Evaluation for TRCU] Routine Comment: Physician Instructions: Reason For Exam: wound care Time Spent in preparation of Discharge (in minutes): 45 Diagnosis - Discharge Diagnosis (1) Scrotal abscess Status: Acute Priority: High (2) Type 2 diabetes mellitus Status: Chronic Priority: Medium (3) Hypertension Status: Chronic Priority: Medium (4) Genital pruritus Status: Resolved Priority: Medium Hospital Course - Lab Results Lab Results: Micro Results 04/16/18 11:15 Blood Blood Culture - Preliminary NO GROWTH AFTER 4 DAYS 04/16/18 11:30 Blood Blood Culture - Preliminary NO GROWTH AFTER 4 DAYS 04/17/18 12:00 Sacral Gram Stain - Final 04/17/18 12:00 Sacral Wound Culture - Final Corynebacterium Species 04/17/18 06:05 Urine,Clean Catch Urine Culture - Final No Growth (<1,000 CFU/ML) 04/16/18 11:24 Abscess - Abscess Gram Stain - Final 04/16/18 11:24 Abscess - Abscess Wound Culture - Final Methicillin Resistant S Aureus Most Recent Lab Values WBC 6.1 10^3/uL (4.5-11.0) 04/21/18 07:00 RBC 4.76 10^6/uL (3.5-6.1) 04/21/18 07:00 Hgb 12.8 g/dL (14.0-18.0) L 04/21/18 07:00 Hct 40.2 % (42.0-52.0) L 04/21/18 07:00 MCV 84.5 fl (80.0-105.0) 04/21/18 07:00 MCH 26.9 pg (25.0-35.0) 04/21/18 07:00 MCHC 31.8 g/dl (31.0-37.0) 04/21/18 07:00 RDW 13.3 % (11.5-14.5) 04/21/18 07:00 Plt Count 309 10^3/uL (120.0-450.0) 04/21/18 07:00 MPV 9.5 fl (7.0-11.0) 04/21/18 07:00 Gran % 66.5 % (50.0-68.0) 04/21/18 07:00 Lymph % (Auto) 22.2 % (22.0-35.0) 04/21/18 07:00 [place] % (Auto) 8.5 % (1.0-6.0) H 04/21/18 07:00 Eos % (Auto) 2.6 % (1.5-5.0) 04/21/18 07:00 Baso % (Auto) 0.2 % (0.0-3.0) 04/21/18 07:00 Gran # 4.07 (1.4-6.5) 04/21/18 07:00 Lymph # (Auto) 1.4 (1.2-3.4) 04/21/18 07:00 [place] # (Auto) 0.5 (0.1-0.6) 04/21/18 07:00 Eos # (Auto) 0.2 (0.0-0.7) 04/21/18 07:00 Baso # (Auto) 0.01 K/mm3 (0.0-2.0) 04/21/18 07:00 PT 14.6 SECONDS (9.4-12.5) H 04/16/18 10:05 INR 1.26 04/16/18 10:05 APTT 32.2 Seconds (25.1-36.5) 04/16/18 10:05 pO2 113 mm/Hg (30-55) H 04/16/18 11:30 VBG pH 7.43 (7.32-7.43) 04/16/18 11:30 VBG pCO2 37.0 (40-60) L 04/16/18 11:30 VBG HCO3 24.6 mmol/l (21-28) 04/16/18 11:30 VBG Total CO2 25.7 mmol.L (22-28) 04/16/18 11:30 VBG O2 Sat (Calc) 97.3 % (40-65) H 04/16/18 11:30 VBG Base Excess 0.5 mmol/L (0.0-2.0) 04/16/18 11:30 VBG Potassium 3.7 mmol/L (3.6-5.2) 04/16/18 11:30 Sodium 132.0 mmol/L (132-148) 04/16/18 11:30 Chloride 100.0 mmol/L (98-107) 04/16/18 11:30 Glucose 380 mg/dl (75-110) H 04/16/18 11:30 Lactate 1.3 mmol/L (0.7-2.1) 04/16/18 11:30 FiO2 21.0 % 04/16/18 11:30 Sodium 139 mmol/L (132-148) 04/21/18 07:00 Potassium 4.0 mmol/L (3.6-5.0) 04/21/18 07:00 Chloride 106 mmol/L (98-107) 04/21/18 07:00 Carbon Dioxide 26 mmol/L (21-33) 04/21/18 07:00 Anion Gap 11 (10-20) 04/21/18 07:00 BUN 18 mg/dL (7-21) 04/21/18 07:00 Creatinine 1.3 mg/dl (0.8-1.5) 04/21/18 07:00 Est GFR ( Amer) > 60 04/21/18 07:00 Est GFR (Non-Af Amer) 60 04/21/18 07:00 POC Glucose (mg/dL) 287 mg/dL (65-110) H 04/21/18 06:21 Random Glucose 272 mg/dL (70-110) H 04/21/18 07:00 Calcium 9.2 mg/dL (8.4-10.5) 04/21/18 07:00 Total Bilirubin 0.3 mg/dL (0.2-1.3) 04/21/18 07:00 AST 24 U/L (17-59) 04/21/18 07:00 ALT 33 U/L (7-56) 04/21/18 07:00 Alkaline Phosphatase 127 U/L (38-126) H 04/21/18 07:00 Total Protein 7.2 g/dL (5.8-8.3) 04/21/18 07:00 Albumin 3.5 g/dL (3.0-4.8) 04/21/18 07:00 Globulin 3.7 gm/dL 04/21/18 07:00 Albumin/Globulin Ratio 1.0 (1.1-1.8) L 04/21/18 07:00 Venous Blood Potassium 3.7 mmol/L (3.6-5.2) 04/16/18 11:30 Urine Color Yellow (YELLOW) 04/20/18 11:00 Urine Appearance Clear (CLEAR) 04/20/18 11:00 Urine pH 6.0 (4.7-8.0) 04/20/18 11:00 Ur Specific [place] 1.025 (1.005-1.035) 04/20/18 11:00 Urine Protein 100 mg/dL (<30 mg/dL) H 04/20/18 11:00 Urine Glucose (UA) 500 mg/dL (NEGATIVE) H 04/20/18 11:00 Urine Ketones Negative mg/dL (NEGATIVE) 04/20/18 11:00 Urine Blood Trace-intact (NEGATIVE) H 04/20/18 11:00 Urine Nitrate Negative (NEGATIVE) 04/20/18 11:00 Urine Bilirubin Negative (NEGATIVE) 04/20/18 11:00 Urine Urobilinogen 0.2 E.U./dL (<1 E.U./dL) 04/20/18 11:00 Ur Leukocyte Esterase Negative Yesenia/uL (NEGATIVE) 04/20/18 11:00 Urine RBC 2 - 5 /hpf (0-2) H 04/20/18 11:00 Urine WBC 0 - 2 /hpf (0-6) 04/20/18 11:00 Ur Epithelial Cells 4 - 5 /hpf (0-5) 04/20/18 11:00 Amorphous Sediment Few /hpf (NONE) 04/20/18 11:00 Urine Bacteria Few /hpf (NONE) 04/20/18 11:00 Urine Other Fiber /hpf 04/20/18 11:00 HIV 1&2 Ag/Ab, 4th Gen Nonreactive (Nonreactive) 04/16/18 15:00 Blood Type AB POSITIVE 04/16/18 11:59 Blood Type Confirm AB POSITIVE 04/16/18 12:26 Antibody Screen Negative 04/16/18 11:59 BBK History Checked No verified bt 04/16/18 11:59 - Hospital Course Hospital Course: Patient is a 43 year old male with past medical history of T2DM and HTN who presented to [facility] with chief complaint of right sided scrotal lesion and swelling. Patient noticed pressure on his right scrotal area 4 days prior to admission that progressively worsened. He also admitted to drainage of white and red pus. 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 Patient was admitted for scrotal abscess. CT showed diffuse soft tissue swelling and fluid in scrotal wall, inflammatory changes at perineum and R medial gluteal SQ tissue most compatible with cellulitis. Surgery was consulted, who took patient to the OR for incision and drainage of the scrotal abscess. No evidence of Fourniere's, gas gangrene or necrotizing fascitis was noted. Abscess was cleaned, packed, and left open to heal by secondary intention. ID was consulted. Patient was initially on broad spectrum antibioitics, but was changed to Zyvox as the abscess was positive for MRSA. Blood and urine cultures were negative. Patient's HTN and DM was managed and medications were adjusted accordingly. Today, patient was seen and examined at bedside. Patient states that he has some mild itching on his genitals. HSV, chlamydia, and gonorrhea were ordered, to be followed up after discharge. Per surgery, patient does not require wound vac and can packing can be managed by his spouse. As patient was hemodynamically stable and no further intervention planned, patient was discharged. Patient was given Rx for PO Zyvox, Motrin, and Novolog pen. Patient was given detailed instructions on logging blood glucose before meals and administering Novolog per sliding scale. Patient acknowledged and agreed to plan. He will follow up with PMD and surgery on discharge. Discharge Exam - Head Exam Head Exam: ATRAUMATIC - Eye Exam Eye Exam: EOMI, Normal appearance, PERRL Pupil Exam: NORMAL ACCOMODATION, PERRL - Respiratory Exam Respiratory Exam: Clear to PA & Lateral. absent: Rales, Rhonchi, Wheezes - Cardiovascular Exam Cardiovascular Exam: RRR, +S1, +S2. absent: Diastolic murmur, Gallop, Rubs, Systolic Murmur - GI/Abdominal Exam GI & Abdominal Exam: Soft. absent: Distended, Guarding, Rebound, Tenderness - Exam Exam: Scrotal Swelling (incision packed) - Extremities Exam Extremities exam: normal inspection - Back Exam Back exam: NORMAL INSPECTION - Neurological Exam Neurological exam: Alert, CN II-XII Intact, Oriented x3 - Psychiatric Exam Psychiatric exam: Normal Affect, Normal Mood - Skin Skin Exam: Dry, Intact, Normal Color, Warm Discharge Plan - Discharge Medications Prescriptions: Ibuprofen [Motrin] 600 mg PO Q6H PRN #15 tab PRN Reason: Pain, Moderate (4-7) Insulin Lispro [Humalog Kwikpen U-100] See Protocol SQ ACTID #1 insuln.pen RX: Linezolid [Zyvox] 600 mg PO BID 14 Days tab - Follow Up Plan Condition: STABLE Disposition: HOME/ ROUTINE Instructions: Insulin Injection, Insulin Lispro, How to Use an Insulin Pen, Abscess (GEN) Additional Instructions: - Follow up with your primary medical doctor Dr. Emerita Bean within one week. - Also follow up with your surgeon Dr. Strickland within one week. - Continuing packing wound as instructed by surgery every other day. - Use Motrin as needed for pain prior to packing, take with food. - May shower, but do not scrub area. - Please resume your home medications as prescribed. - Complete 14 days of antibiotics as prescribed, Xyvox. - Log blood glucose level prior to meals (three times per day). - Refer to sliding scale for number of units of insulin to administer after measuring blood glucose. - Return to ED if symptoms return or worsen. Sliding Scale Before Meals: - Blood Sugar < 150, no insulin - BS 150-199, give 1 unit of insulin - BS 200-249, give 3 units of insulin - BS 250-299, give 5 units of insulin - BS 300-349, give 7 units of insulin - BS 350-399, give 8 units of insulin - BS > 400, give 10 units of insulin Referrals: Emerita Bean MD [Primary Care Provider] - Hugh Strickland MD [Staff Provider] - <Ginna Sheets - Last Filed: 04/21/18 14:08> Provider - Provider Date of Admission: 04/16/18 13:34 Attending physician: Ginna Sheets MD Primary care physician: Emerita Bean MD Consults: 04/16/18 09:42 Physician Consult Stat Comment: Consulting Provider: Marbin Cabrera Consulting Physician: Marbin Cabrera Reason for Consult: scrotal infection, possible chilo's Gangrene 04/16/18 10:33 Physician Consult Stat Comment: Consulting Provider: Hugh Strickland Consulting Physician: Hugh Strickland Reason for Consult: scrotal abscess, r/o Chilo's gangrene 04/16/18 13:28 Infectious Disease Consult Stat Comment: Consulting Provider: Omid Friedman Consulting Physician: Omid Friedman Reason for Consult: scrotal abscess 04/16/18 17:49 Diabetic Education Referral Routine Comment: blood sugar in ed 379 Physician Instructions: Reason For Exam: eval 04/17/18 17:55 Nursing Referral for Wound Care Routine Comment: Physician Instructions: Reason For Exam: incision and drainage perineal area 04/18/18 12:27 Wound Care [Nursing Referral for Wound Care] Routine Comment: Physician Instructions: Reason For Exam: need wound vac please 04/18/18 12:28 Section Maintainer [Case Management Referral] Routine Comment: Physician Instructions: Reason For Exam: need home wound vac please Reason for Referral: LIZZIE Vogt 04/19/18 11:10 TCU [Evaluation for TRCU] Routine Comment: Physician Instructions: Reason For Exam: wound care Hospital Course - Lab Results Lab Results: Micro Results 04/16/18 11:30 Blood Blood Culture - Final NO GROWTH AFTER 5 DAYS 04/16/18 11:30 Blood Gram Stain - Final TEST NOT PERFORMED 04/16/18 11:15 Blood Blood Culture - Final NO GROWTH AFTER 5 DAYS 04/16/18 11:15 Blood Gram Stain - Final TEST NOT PERFORMED 04/17/18 12:00 Sacral Gram Stain - Final 04/17/18 12:00 Sacral Wound Culture - Final Corynebacterium Species 04/17/18 06:05 Urine,Clean Catch Urine Culture - Final No Growth (<1,000 CFU/ML) 04/16/18 11:24 Abscess - Abscess Gram Stain - Final 04/16/18 11:24 Abscess - Abscess Wound Culture - Final Methicillin Resistant S Aureus Most Recent Lab Values WBC 6.1 10^3/uL (4.5-11.0) 04/21/18 07:00 RBC 4.76 10^6/uL (3.5-6.1) 04/21/18 07:00 Hgb 12.8 g/dL (14.0-18.0) L 04/21/18 07:00 Hct 40.2 % (42.0-52.0) L 04/21/18 07:00 MCV 84.5 fl (80.0-105.0) 04/21/18 07:00 MCH 26.9 pg (25.0-35.0) 04/21/18 07:00 MCHC 31.8 g/dl (31.0-37.0) 04/21/18 07:00 RDW 13.3 % (11.5-14.5) 04/21/18 07:00 Plt Count 309 10^3/uL (120.0-450.0) 04/21/18 07:00 MPV 9.5 fl (7.0-11.0) 04/21/18 07:00 Gran % 66.5 % (50.0-68.0) 04/21/18 07:00 Lymph % (Auto) 22.2 % (22.0-35.0) 04/21/18 07:00 [place] % (Auto) 8.5 % (1.0-6.0) H 04/21/18 07:00 Eos % (Auto) 2.6 % (1.5-5.0) 04/21/18 07:00 Baso % (Auto) 0.2 % (0.0-3.0) 04/21/18 07:00 Gran # 4.07 (1.4-6.5) 04/21/18 07:00 Lymph # (Auto) 1.4 (1.2-3.4) 04/21/18 07:00 [place] # (Auto) 0.5 (0.1-0.6) 04/21/18 07:00 Eos # (Auto) 0.2 (0.0-0.7) 04/21/18 07:00 Baso # (Auto) 0.01 K/mm3 (0.0-2.0) 04/21/18 07:00 PT 14.6 SECONDS (9.4-12.5) H 04/16/18 10:05 INR 1.26 04/16/18 10:05 APTT 32.2 Seconds (25.1-36.5) 04/16/18 10:05 pO2 113 mm/Hg (30-55) H 04/16/18 11:30 VBG pH 7.43 (7.32-7.43) 04/16/18 11:30 VBG pCO2 37.0 (40-60) L 04/16/18 11:30 VBG HCO3 24.6 mmol/l (21-28) 04/16/18 11:30 VBG Total CO2 25.7 mmol.L (22-28) 04/16/18 11:30 VBG O2 Sat (Calc) 97.3 % (40-65) H 04/16/18 11:30 VBG Base Excess 0.5 mmol/L (0.0-2.0) 04/16/18 11:30 VBG Potassium 3.7 mmol/L (3.6-5.2) 04/16/18 11:30 Sodium 132.0 mmol/L (132-148) 04/16/18 11:30 Chloride 100.0 mmol/L (98-107) 04/16/18 11:30 Glucose 380 mg/dl (75-110) H 04/16/18 11:30 Lactate 1.3 mmol/L (0.7-2.1) 04/16/18 11:30 FiO2 21.0 % 04/16/18 11:30 Sodium 139 mmol/L (132-148) 04/21/18 07:00 Potassium 4.0 mmol/L (3.6-5.0) 04/21/18 07:00 Chloride 106 mmol/L (98-107) 04/21/18 07:00 Carbon Dioxide 26 mmol/L (21-33) 04/21/18 07:00 Anion Gap 11 (10-20) 04/21/18 07:00 BUN 18 mg/dL (7-21) 04/21/18 07:00 Creatinine 1.3 mg/dl (0.8-1.5) 04/21/18 07:00 Est GFR ( Amer) > 60 04/21/18 07:00 Est GFR (Non-Af Amer) 60 04/21/18 07:00 POC Glucose (mg/dL) 287 mg/dL (65-110) H 04/21/18 06:21 Random Glucose 272 mg/dL (70-110) H 04/21/18 07:00 Calcium 9.2 mg/dL (8.4-10.5) 04/21/18 07:00 Total Bilirubin 0.3 mg/dL (0.2-1.3) 04/21/18 07:00 AST 24 U/L (17-59) 04/21/18 07:00 ALT 33 U/L (7-56) 04/21/18 07:00 Alkaline Phosphatase 127 U/L (38-126) H 04/21/18 07:00 Total Protein 7.2 g/dL (5.8-8.3) 04/21/18 07:00 Albumin 3.5 g/dL (3.0-4.8) 04/21/18 07:00 Globulin 3.7 gm/dL 04/21/18 07:00 Albumin/Globulin Ratio 1.0 (1.1-1.8) L 04/21/18 07:00 Venous Blood Potassium 3.7 mmol/L (3.6-5.2) 04/16/18 11:30 Urine Color Yellow (YELLOW) 04/20/18 11:00 Urine Appearance Clear (CLEAR) 04/20/18 11:00 Urine pH 6.0 (4.7-8.0) 04/20/18 11:00 Ur Specific [place] 1.025 (1.005-1.035) 04/20/18 11:00 Urine Protein 100 mg/dL (<30 mg/dL) H 04/20/18 11:00 Urine Glucose (UA) 500 mg/dL (NEGATIVE) H 04/20/18 11:00 Urine Ketones Negative mg/dL (NEGATIVE) 04/20/18 11:00 Urine Blood Trace-intact (NEGATIVE) H 04/20/18 11:00 Urine Nitrate Negative (NEGATIVE) 04/20/18 11:00 Urine Bilirubin Negative (NEGATIVE) 04/20/18 11:00 Urine Urobilinogen 0.2 E.U./dL (<1 E.U./dL) 04/20/18 11:00 Ur Leukocyte Esterase Negative Yesenia/uL (NEGATIVE) 04/20/18 11:00 Urine RBC 2 - 5 /hpf (0-2) H 04/20/18 11:00 Urine WBC 0 - 2 /hpf (0-6) 04/20/18 11:00 Ur Epithelial Cells 4 - 5 /hpf (0-5) 04/20/18 11:00 Amorphous Sediment Few /hpf (NONE) 04/20/18 11:00 Urine Bacteria Few /hpf (NONE) 04/20/18 11:00 Urine Other Fiber /hpf 04/20/18 11:00 HIV 1&2 Ag/Ab, 4th Gen Nonreactive (Nonreactive) 04/16/18 15:00 Blood Type AB POSITIVE 04/16/18 11:59 Blood Type Confirm AB POSITIVE 04/16/18 12:26 Antibody Screen Negative 04/16/18 11:59 BBK History Checked No verified bt 04/16/18 11:59 Attending/Attestation - Attestation I have personally seen and examined this patient.: Yes I have fully participated in the care of the patient.: Yes I have reviewed all pertinent clinical information, including history, physical exam and plan: Yes Notes (Text): 04/21/18 14:03 Medical record note made by the resident after discussion with my direction and input after the patient was personally seen and examined by me. I have reviewed the chart and agree that the record accurately reflects by personal performance of the history, physical exam, data review, and medical decision-making, in the course for the patient. I have also personally directed the plan of care. 43 year old male with past medical history of NIDDM and HTN was admitted with chief complaint of right sided scrotal lesion and swelling. Patient noticed pressure on his right scrotal area 4 days prior to admission that progressively worsened. He also admitted to drainage of white and red pus. 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 CT showed diffuse soft tissue swelling and fluid in scrotal wall, inflammatory changes at perineum and R medial gluteal SQ tissue most compatible with cellulitis. Patient was started on IV antibiotics. Surgery was consulted, who took patient to the OR for incision and drainage of the scrotal abscess. No evidence of Fourniere's, gas gangrene or necrotizing fascitis was noted. Abscess was cleaned, packed, and left open to heal by secondary intention. Wound cultures grew MRSA, antibiotics were changed to to Zyvox as per ID. Blood and urine cultures were negative. Dressing instructions were given to patient and by surgical team in front of me. Patient will be discharged home and will follow up with PCP and surgery. He will also need repeat CBC in one week with PMD. Management plan was discussed in detail with patient and family. Education was provided
--- NOTE | 2018-04-21 13:40 | PN ---
DATE: 04/21/2018 SUBJECTIVE: The patient is in bed, in no in no acute distress. PHYSICAL EXAMINATION: VITAL SIGNS: Temperature is 98, blood pressure is 150/80, respiratory rate 20, heart rate of 18. HEENT: Unremarkable. NECK: Supple. LUNGS: Decreased breath sounds. HEART: Normal, S1 and S2. ABDOMEN: Soft, nontender. LABORATORY DATA: Examination reveals white count of 6.1, hemoglobin of 12. Chemistries are noted. Urinalysis is noted. Serology is noted. HIV is negative. Microbiology is reviewed. 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 Omid Friedman MD
== END 2018-04-21 13:44 | disposition home or self-care (01) | DRG 717 ==
LOC: ED 08:51 → ERH 13:34 → 3RNO 16:32 → 5RNO 04-18 14:03
PROVIDERS: ADMIT Hospitalist; ATTEND Internal Medicine
PROC: 0J9B0ZZ Drainage of Perineum Subcutaneous Tissue and Fascia, Open Approach (ICD-10-PCS; 2018-04-17)
PROC: 0JBB0ZZ Excision of Perineum Subcutaneous Tissue and Fascia, Open Approach (ICD-10-PCS; principal; 2018-04-17 10:00)
DX: N49.2 Inflammatory disorders of scrotum (principal); L02.215 Cutaneous abscess of perineum; Z68.42 Body mass index [BMI] 45.0-49.9, adult; E11.9 Type 2 diabetes mellitus without complications; I10 Essential (primary) hypertension; L29.9 Pruritus, unspecified; B95.62 Methicillin resistant Staphylococcus aureus infection as the cause of diseases classified elsewhere; E66.01 Morbid (severe) obesity due to excess calories; F17.210 Nicotine dependence, cigarettes, uncomplicated; N48.89 Other specified disorders of penis; Z91.14 Patient's other noncompliance with medication regimen; Z91.19 Patient's noncompliance with other medical treatment and regimen; Z83.3 Family history of diabetes mellitus